=== PATIENT | male | born 1965 | race Caucasian/White ===

== ENCOUNTER 2017-11-27 19:37 | Emergency (ER) | payer OTHER ==
[2017-11-27] MEDS ORDERED: CLINDAMYCIN HCL 150 MG CAP ONE (19:52)
[2017-11-27] MEDS ORDERED: SMZ./TMP. 800/160 MG TABLET ONE (19:52)
[2017-11-27] MEDS ORDERED: TETANUS & DIPHTHERIA TOX,ADULT 0.5 ML VIAL ONE (19:53)
--- NOTE | 2017-11-27 20:09 | RAD REPORT ---
EXAM DESCRIPTION: CT - Head Brain Wo Cont - 11/27/2017 7:52 pm CLINICAL HISTORY: Blunt force trauma, puncture wound to the scalp COMPARISON: None. TECHNIQUE: Axial 5 mm thick images of the head were obtained without IV contrast. All CT scans are performed using dose optimization technique as appropriate and may include automated exposure control or mA/KV adjustment according to patient size. FINDINGS: No intracranial hemorrhage, mass, edema or shift of mid-line structures. No acute infarcti on changes seen. No abnormal extra-axial fluid collections. Ventricles are normal. Mastoid air cells and visualized portions of the paranasal sinuses are clear. No skull fracture or acute bone finding. No measurable hematoma or mass in the scalp soft tissues. No foreign body. IMPRESSION: Negative non-contrast CT head examination.
--- NOTE | 2017-11-27 20:27 | ER ---
Nurse's Notes [facility] Name: Daniel George Age: 52 yrs Sex: Male : 1965 Arrival Date: 11/27/2017 Time: 19:38 Bed 2 Private MD: Diagnosis: Laceration without foreign body of scalp Presentation: 11/27 19:40 Presenting complaint: EMS states: About an hour and a half ago, patient hit head on lp1 nail, laceration noted to back of head, not actively bleeding; Also has abscess to right hand, about 4-5 days; Denies any fever, LOC; Patient A\T\O x4. Transition of care: patient was not received from another setting of care. Complicating Factors: There are no complicating factors for this patient. Onset of symptoms was November 27, 2017 at 18:00. Initial Sepsis Screen: Does the patient meet any 2 criteria? No. Patient's initial sepsis screen is negative. Does the patient have a suspected source of infection? No. Patient's initial sepsis screen is negative. Care prior to arrival: None. 19:40 Method Of Arrival: EMS: [facility] lp1 19:40 Acuity: KYA 4 lp1 Triage Assessment: 19:45 General: Appears in no apparent distress. Behavior is calm, cooperative, appropriate lp1 for age. Pain: Complains of pain in scalp and right hand Pain currently is 8 out of 10 on a pain scale. EENT: No signs and/or symptoms were reported regarding the EENT system. Neuro: Level of Consciousness is awake, alert, obeys commands, Oriented to person, place, time, situation. Cardiovascular: Patient's skin is warm and dry. Respiratory: Respiratory effort is even, unlabored. GI: No signs and/or symptoms were reported involving the gastrointestinal system. : No signs and/or symptoms were reported regarding the genitourinary system. Derm: Skin is pink, warm \T\ dry. Abscess located on dorsum of right hand is half dollar sized. Musculoskeletal: Circulation, motion, and sensation intact. Injury Description: Laceration sustained to left parietal area was sustained 1-2 hours ago. Historical: - Allergies: 19:45 No Known Allergies; lp1 - Home Meds: 19:45 Metoprolol Tartrate Oral [Active]; Alprazolam Oral [Active]; Celexa Oral [Active]; lp1 Diazepam Oral [Active]; - PMHx: 19:45 Hypertension; Hernia; Hyperlipidemia; lp1 - PSHx: 19:45 None; lp1 - Immunization history:: Adult Immunizations up to date, Last tetanus immunization: > 10 years ago. - Family history:: not pertinent. - Social history:: Smoking status: Patient uses tobacco products, smokes one pack cigarettes per day. - Hospitalizations: : No recent hospitalization is reported. Screenin:45 Abuse screen: Denies threats or abuse. Denies injuries from another. Nutritional lp1 screening: No deficits noted. Tuberculosis screening: No symptoms or risk factors identified. Fall Risk None identified. Assessment: 19:47 Reassessment: See Triage assessment. lp1 20:00 Injury Description: Laceration is contaminated, 0.5 to 2.5 cm long. lp1 Vital Signs: 19:42 BP 123 / 89; Pulse 84; Resp 18; Temp 98.2(O); Pulse Ox 97% on R/A; Weight 81.65 kg; lp1 Height 5 ft. 11 in. (180.34 cm); Pain 8/10; 19:42 Body Mass Index 25.11 (81.65 kg, 180.34 cm) lp1 ED Course: 19:38 Patient arrived in ED. am2 19:38 Nael Wharton MD is Attending Physician. rn 19:40 Vikki Lentz, YA is Primary Nurse. lp1 19:42 Triage completed. lp1 19:42 Arm band placed on left wrist. lp1 19:45 Patient has correct armband on for positive identification. Bed in low position. Pulse lp1 ox on. NIBP on. 19:[address] via stretcher. lp1 19:49 CT completed. Patient moved back from CT. cw1 19:52 CT Head Brain wo Cont In Process Unspecified. EDMS 20:28 Assist provider with laceration repair on left parietal area that was 2.5 cm. or less lp1 using verito. Set up tray. Performed by Neal Wharton MD Patient tolerated well. 20:29 Patient did not have IV access during this emergency room visit. 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 Exp: mg2 03/02/2020. Lot #: [id number]. } Route: IM; Site: right deltoid; 20:40 Follow up: Response: No adverse reaction lp1 20:04 Drug: Clindamycin 300 mg Route: PO; mg2 20:44 Follow up: Response: No adverse reaction lp1 20:04 Drug: Bactrim (160 mg-800 mg (DS) 1 tablet Route: PO; mg2 20:44 Follow up: Response: No adverse reaction lp1 20:39 Drug: Tylenol 1000 mg Route: PO; lp1 20:40 Follow up: Response: Medication administered at discharge. lp1 20:39 Drug: Ibuprofen 800 mg Route: PO; lp1 20:39 Follow up: Response: Medication administered at discharge. lp1 Outcome: 20:27 Discharge ordered by . rn 20:42 Discharged to home ambulatory. lp1 20:42 Condition: good 20:42 Discharge instructions given to patient, Instructed on discharge instructions, follow up and referral plans. medication usage, Demonstrated understanding of instructions, follow-up care, medications, Prescriptions given X 2. 20:43 Patient left the ED. lp1 Signatures: Dispatcher [employer] EDMS Neal Wharton MD MD rn Woodley, Crystal cw1 Vikki Lentz RN RN lp1 Swapna Bain am2 Baldomero Thayer, YA RN mg2 Corrections: (The following items were deleted from the chart) 20:26 19:42 BP 123 / 89; Pulse 84bpm; Resp 18bpm; Pulse Ox 97% RA; 81.65 kg; Height 5 ft. 11 lp1 in.; BMI: 25.1; Pain 8/10; lp1
--- NOTE | 2017-11-27 20:27 | EDPHYS ---
Physician Documentation [facility] Name: Daniel George Age: 52 yrs Sex: Male : 1965 Arrival Date: 11/27/2017 Time: 19:38 Bed 2 Private MD: ED Physician Neal Wharton HPI: 11/27 19:39 This 52 yrs old Male presents to ER via Unassigned with complaints of rn Laceration To Head. 19:39 The patient has a laceration related to: a puncture wound occurred at home, and there rn are no complicating factors. The laceration(s) is(are) located on the scalp. Onset: The symptoms/episode began/occurred today. Associated signs and symptoms: Pertinent negatives: dizziness, loss of consciousness, suspected foreign body. The patient has not experienced similar symptoms in the past. REports stood up, hit head on exposed nail/screw + mild bleeding, no LOC, + mild headache, not on blood thinners, also reports has had hand infection over last 5 days or so, + recurrent staph infections in past. No fever. No mobility issues in right hand.. Historical: - Allergies: 19:45 No Known Allergies; lp1 - Home Meds: 19:45 Metoprolol Tartrate Oral [Active]; Alprazolam Oral [Active]; Celexa Oral [Active]; lp1 Diazepam Oral [Active]; - PMHx: 19:45 Hypertension; Hernia; Hyperlipidemia; lp1 - PSHx: 19:45 None; lp1 - Immunization history:: Adult Immunizations up to date, Last tetanus immunization: > 10 years ago. - Family history:: not pertinent. - Social history:: Smoking status: Patient uses tobacco products, smokes one pack cigarettes per day. - Hospitalizations: : No recent hospitalization is reported. ROS: 19:39 Constitutional: Negative for fever, chills, and weight loss, Eyes: Negative for injury, rn pain, redness, and discharge, Neck: Negative for injury, pain, and swelling, Cardiovascular: Negative for chest pain, palpitations, and edema, Respiratory: Negative for shortness of breath, cough, wheezing, and pleuritic chest pain, Abdomen/GI: Negative for abdominal pain, nausea, vomiting, diarrhea, and constipation, Back: Negative for injury and pain, MS/Extremity: Negative for injury and deformity, Skin: + infection of right hand, + puncture wound to scalp Neuro: Negative for weakness, numbness, tingling, and seizure. Exam: 19:39 Constitutional: This is a well developed, well nourished patient who is awake, alert, rn and in no acute distress. Head/Face: Normocephalic, 2cm linear superficial laceration to posertior/crown scalp, no active bleeding, no foreign body noted Eyes: Pupils equal round and reactive to light, extra-ocular motions intact. Lids and lashes normal. Conjunctiva and sclera are non-icteric and not injected. Cornea within normal limits. Periorbital areas with no swelling, redness, or edema. Neck: Trachea midline, no thyromegaly or masses palpated, and no cervical lymphadenopathy. Supple, full range of motion without nuchal rigidity, or vertebral point tenderness. No Meningismus. Cardiovascular: Regular rate and rhythm with a normal S1 and S2. No gallops, murmurs, or rubs. Normal PMI, no JVD. No pulse deficits. Respiratory: Lungs have equal breath sounds bilaterally, clear to auscultation and percussion. No rales, rhonchi or wheezes noted. No increased work of breathing, no retractions or nasal flaring. Abdomen/GI: Soft, non-tender, with normal bowel sounds. No distension or tympany. No guarding or rebound. No evidence of tenderness throughout. Skin: Warm, dry, + crusting healing wound to dorsum of right hand, no fluctuance, no involvement of fingers/digits, no evidence FTS, no purulence, + dry cracked surrounding skin with mild erythema and peeling. MS/ Extremity: Pulses equal, no cyanosis. Neurovascular intact. Full, normal range of motion. Equal circumference. Neuro: Awake and alert, GCS 15, oriented to person, place, time, and situation. Cranial nerves II-XII grossly intact. Motor strength 5/5 in all extremities. Sensory grossly intact. Cerebellar exam normal. Normal gait. Vital Signs: 19:42 BP 123 / 89; Pulse 84; Resp 18; Temp 98.2(O); Pulse Ox 97% on R/A; Weight 81.65 kg; lp1 Height 5 ft. 11 in. (180.34 cm); Pain 8/10; 19:42 Body Mass Index 25.11 (81.65 kg, 180.34 cm) lp1 Laceration: 20:25 Wound Repair of 2cm ( 0.8in ) subcutaneous laceration to scalp. Distal rn neuro/vascular/tendon intact. Wound prep: Extensive cleansing by pest control technician, Wound irrigation with saline by pest control technician, Copious irrigation. Skin closed with 2 1-0 [place] using staple gun. Dressed with Neosporin. Patient tolerated well. MDM: 19:38 Patient medically screened. rn 20:25 Differential diagnosis: superficial laceration. Data reviewed: vital signs, nurses rn notes, radiologic studies, CT scan, and as a result, I will discharge patient. Counseling: I had a detailed discussion with the patient and/or guardian regarding: the historical points, exam findings, and any diagnostic results supporting the discharge/admit diagnosis, radiology results, the need for outpatient follow up, to return to the emergency department if symptoms worsen or persist or if there are any questions or concerns that arise at home. 20:26 Special discussion: I discussed with the patient/guardian in detail that at this point rn there is no indication for admission to the hospital. It is understood, however, that if the symptoms persist or worsen the patient needs to return immediately for re-evaluation. 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 Exp: mg2 03/02/2020. Lot #: [id number]. } Route: IM; Site: right deltoid; 20:40 Follow up: Response: No adverse reaction lp1 20:04 Drug: Clindamycin 300 mg Route: PO; mg2 20:44 Follow up: Response: No adverse reaction lp1 20:04 Drug: Bactrim (160 mg-800 mg (DS) 1 tablet Route: PO; mg2 20:44 Follow up: Response: No adverse reaction lp1 20:39 Drug: Tylenol 1000 mg Route: PO; lp1 20:40 Follow up: Response: Medication administered at discharge. lp1 20:39 Drug: Ibuprofen 800 mg Route: PO; lp1 20:39 Follow up: Response: Medication administered at discharge. lp1 Disposition: 11/27/17 20:27 Discharged to Home. Impression: Laceration without foreign body of scalp. - Condition is Stable. - Discharge Instructions: Cellulitis, Laceration Care, Adult, Stitches, Shen, or Adhesive Wound Closure. - Prescriptions for Clindamycin HCl 300 mg Oral Capsule - take 1 capsule by ORAL route every 6 hours for 10 days; 40 capsule. Bactrim DS 800- 160 mg Oral Tablet - take 1 tablet by ORAL route every 12 hours for 10 days; 20 tablet. - Medication Reconciliation Form, Thank You Letter, Antibiotic Education, Prescription Opioid Use form. - Follow up: Private Physician; When: 7 - 10 days; Reason: Staple/Suture removal. - Problem is new. - Symptoms have improved. Signatures: Dispatcher [employer] EDNeal Davison MD MD rn Vikki Lentz RN RN lp1 Baldomero Thayer RN RN mg2
[2017-11-27] MEDS ORDERED: ACETAMINOPHEN 500 MG TAB ONE (20:30)
[2017-11-27] MEDS ORDERED: IBUPROFEN 400 MG TAB ONE (20:30)
== END 2017-11-27 20:43 | disposition home or self-care (01) ==
LOC: ER 19:37
PROC: 0JQ00ZZ Repair Scalp Subcutaneous Tissue and Fascia, Open Approach (ICD-10-PCS; principal; 2017-11-27)
DX: S01.01XA Laceration without foreign body of scalp, initial encounter (principal); W22.8XXA Striking against or struck by other objects, initial encounter; Y93.89 Activity, other specified; Y92.009 Unspecified place in unspecified non-institutional (private) residence as the place of occurrence of the external cause; Z23 Encounter for immunization; F17.210 Nicotine dependence, cigarettes, uncomplicated; I10 Essential (primary) hypertension; E78.5 Hyperlipidemia, unspecified
CPT/HCPCS: 70450; 90714; 99284

== ENCOUNTER 2018-03-16 07:30 | Day surgery (SDC) | payer OTHER ==
--- OUTSIDE RECORDS SUMMARY | 2018-03-16 07:34 | XMS REPORT ---
:1965 Author Organization [employer] Care Team Providers Name Role Phone Dennis Mak Provider Role Unavailable Allergies, Adverse Reactions, Alerts Substance Reaction Event Type N.K.D.A. Info Not Available Non Drug Allergy Problems Problem Type Condition Code Onset Dates Condition Status Assessment Left inguinal hernia K40.90 Active Medications Medication Code Code Instructions Start End Date Status Dosage System Date Diazepam [facility] 26372749992 10 MG Orally Active 1 tablet Twice a day as needed Metoprolol [facility] 47574920250 100 MG Orally Active 1 tablet Tartrate Twice a day with food Celexa [facility] 31612391088 40 MG Orally Active 0.5 Once a day tablet Alprazolam [facility] 58519471300 2 MG Orally Active 1 tablet Twice a day Results No Known Results Summary Purpose [employer] Submission
[2018-03-16] MEDS ORDERED: Ringers Lactate 1,000 ML IV ONE ×2 (07:55→09:30)
[2018-03-16] MEDS ORDERED: CEFAZOLIN/SWI 1gm 1 GM/10 ML SYR ONE (07:55)
[2018-03-16] MEDS ORDERED: BUPIVACA 0.25%/EPI 0.0005% MDV 50 ML VIAL ONE (08:00)
[2018-03-16] MEDS ORDERED: PROPOFOL 200 MG/20 ML VIAL IV ONE (08:27)
[2018-03-16] MEDS ORDERED: FENTANYL CITR 100 MCG/2 ML ONE ×2 (08:28→09:29)
[2018-03-16] MEDS ORDERED: MIDAZOLAM HCL 2 MG/2 ML INJ ONE (08:28)
[2018-03-16] MEDS ORDERED: LIDOCAINE 1% MPF 5 ML VIAL ONE (08:28)
[2018-03-16] MEDS ORDERED: ONDANSETRON HCL 40 MG/20 ML VIAL ONE (08:29)
[2018-03-16] MEDS ORDERED: ROCURONIUM 50 MG/5 ML VIAL IV ONE (08:29)
[2018-03-16] MEDS ORDERED: Phenylephrine HCl 10 MG/ML 1 ML VIAL ONE (09:11)
[2018-03-16] MEDS ORDERED: EPHEDRINE SULF 50 MG/10 ML SYR ONE (09:48)
--- NOTE | 2018-03-16 10:35 | P.OP ---
Preoperative diagnosis: LEFT inguinal hernia Postoperative diagnosis: LEFT pantaloon inguinal hernia Primary procedure: Open LEFT inguinal hernia repair with plug and patch Anesthesia: GETA + Local Estimated blood loss: <10cc Specimen: LEFT inguinal hernia sack Findings: LEFT pantaloon - direct and indirect hernia Complications: None Implants: Bard plug and patch system Transferred to: Recovery Room Condition: Good
[2018-03-16] MEDS: MEPERIDINE HCL 50 MG/ML AMP ONE ×4 (10:44→11:01)
[2018-03-16] MEDS ORDERED: MORPHINE 4 MG/ML SYR ONE (11:14)
[2018-03-16] MEDS ORDERED: HYDROCODONE/APAP 5/325 MG TAB ONE (12:44)
--- NOTE | 2018-03-16 22:46 | OP ---
Date of Procedure: 03/16/2018 Surgeon: Dennis Mak MD, Preoperative Diagnosis: Left inguinal hernia. Postoperative Diagnosis: Left pantaloon inguinal hernia. Procedure Performed: Open left inguinal hernia repair with plug and patch system. Anesthesia: General endotracheal plus local with 0.25% Marcaine with epinephrine. Estimated Blood Loss: Less than 10 cc. Specimen: Left inguinal hernia sac. Findings: Left pantaloon/direct indirect inguinal hernias. Complications: None. Implants: Bard plug and patch large hernia repair system. Disposition: Transferred to the recovery room in good condition. Procedure In Detail: After informed consent obtained, patient brought to the operating room, prepped in the usual sterile fashion. After adequate anesthesia achieved, a left inguinal incision was made through subcutaneous tissues after appropriately anesthetizing 0.25% Marcaine down through Camper's fat and Deb's fascia to expose the frayed external oblique aponeurosis. This layer was almost com pletely obliterated by this large bulging hernia which was approximately the size of an orange bulgin g from this patient's inguinal region. Dissection continued down to expose the hernia sac. This was completely encircled and opened. The hernia sac was dissected free from the spermatic cord structur es, which were all identified carefully, and these were encircled with a Beka drain. At this poin t, the hernia sac was dissected free from the spermatic cord structures. The colon was found to be e manating through this hernia defect as well and required dissection and separation from the hernia sa c using both sharp and blunt dissection. In addition, minimal electrocautery was used in this area. After the colon was moved to the normal anatomic position, the hernia sac was ligated and sent off f or pathologic examination. At this point, the large hernia patch system was used and placed into the preperitoneal space and unfurled appropriately and secured circumferentially with 3 single 0 PDS sut ures with good approximation. A cord lipoma was still evident on the cord and this was taken off and sent off for pathologic examination at the same time. At this point, the area was copiously irrigat ed and the testicle was pulled back to the normal anatomic position aligning the spermatic cord struc tures and allowing for optimal position of the patch system. The patch was large patch of Bard manuf acturing, which was then sized appropriately and trimmed and placed under the cord structures and med ially along the tract. It was then secured to the medial and lateral shelving edges and secured to r econstitute the inguinal ring on the proximal aspect with an interrupted 0 PDS sutures. The area was then copiously irrigated multiple times until completely clear. The thin friable external oblique a poneurosis was then reapproximated over the top of this, but this was again thin friable and essentia lly had minimal strength to it. This next layer was copiously irrigated. The Camper's fat and Scarp a's fascia was closed with simple interrupted 3-0 Vicryl sutures with good approximation. The skin w as then copiously irrigated and dried, and then the skin was closed with a 4-0 Monocryl in a running fashion, Dermabond placed over top. The patient tolerated the procedure well without complications, transferred to the PACU in good condition. All counts were correct at the end of the case. NICHOLE/HALEY Voice ID: [id number] Report ID: [id number]
== END 2018-03-16 15:00 | disposition home or self-care (01) ==
LOC: OR 07:30
PROVIDERS: ATTEND Surgery
PROC: 0YU60JZ Supplement Left Inguinal Region with Synthetic Substitute, Open Approach (ICD-10-PCS; principal; 2018-03-16 08:30)
DX: K40.90 Unilateral inguinal hernia, without obstruction or gangrene, not specified as recurrent (principal); I10 Essential (primary) hypertension; E78.5 Hyperlipidemia, unspecified; F41.8 Other specified anxiety disorders; F17.210 Nicotine dependence, cigarettes, uncomplicated; Z80.1 Family history of malignant neoplasm of trachea, bronchus and lung
CPT/HCPCS: 88302; J0690; J2175; J2250; J2370; J2405; J3010

== ENCOUNTER 2021-12-18 02:33 | Emergency (ER) | payer OTHER ==
[2021-12-18] MEDS ORDERED: ETOMIDATE 20 MG/10 ML VIAL IV ONE (02:34)
[2021-12-18] MEDS ORDERED: SUCCINYLCHOLINE 20 MG/ML (10 ML) IV ONE (02:34)
--- OUTSIDE RECORDS SUMMARY | 2021-12-18 02:36 | XMS REPORT | Continuity of Care Document ---
:1965 Author Organization [facility] t Address [address] [place] [address] [address] [place] [address] Care Team Providers Name Role Phone Pcp, Does Not Have A Primary Care Physician Payers Payer Name Policy Type Policy Number Effective Date Expiration Date S josé miguel [facility] [id number] 2017 00:00:00 PLUS Problems Condition Condition Condition Status Onset Resolution Last Treating Co mments Source Name Details Category Date Date Treatment Clinician Date Follow-up Follow-up Diagnosis Active C ommon exam exam [facility] No known No known Disease Unive rs active active ity of problems problems [facility] Allergies, Adverse Reactions, Alerts Allergy Allergy Status Severity Reaction(s) Onset Inactive Treating Comm ents Source Name Type Date Date Clinician NO KNOWN Drug Active Univers ALLERGIE Class ity of S [facility] Social History Social Habit Start Date Stop Date Quantity Comments Source Exposure to Unable to assess Univers ity of SARS-CoV-2 [facility] (event) [place] Sex Ass[birth year] Universit y of 00:00:00 00:00:00 [facility] Smoking Status Start Date Stop Date Source Unknown if ever smoked [facility] Medications Ordered Filled Start Stop Current Ordering Indication Dosage Frequency Signature Comments Components Source Medication Medication Date Date Medication? Clinician (SIG) Name Name No known 2015-08 No Univers medications 08-01 ity of 18:50: [address] Diazepam Diazepam Yes Dennis 1 tablet Com mon Kovacev as needed [facility] Metoprolol Metoprolol Yes Dennis 1 tablet Common Tartrate Tartrate Kovacev with food [facility] Celexa Celexa Yes Dennis 0.5 tablet Commo n [facility] Alprazolam Alprazolam Yes Dennis 1 tablet Common [facility] Procedures This patient has no known procedures. Encounters Start End Encounter Admission Attending Care Care Encounter Source Date/Time Date/Time Type Type Clinicians Facility Department ID 2021-11-05 2021-11-05 Emergency X [facility] ERT [id number] Univers 22:33:00 22:34:00 ity of [facility] 2021-11-05 2021-11-05 Emergency [facility] [id number] Univers 22:33:00 22:34:00 [place] [id number] i ty [facility] [id number] [facility] [id number] [address] 2018-04-04 2018-04-04 [facility] [id number] Common 13:30:00 13:30:00 t Specialty/U Sp mode Specialty [facility] 2018-03-22 2018-03-22 [facility] [id number] Common 14:11:00 14:11:00 t Specialty/U Sp mode Specialty [facility] 2018-02-28 2018-02-28 [facility] [id number] Common 09:00:00 09:00:00 t Specialty/U Sp mode Specialty [facility] Results This patient has no known results.
[2021-12-18] MEDS ORDERED: RSI MEDICATION KIT IV ONE ×3 (03:37→06:28)
[2021-12-18 03:40] LABS: Absolute Lymphocytes (CBC) 1.9 K/uL (0.7-4.9); RBC Red Blood Cell Count 4.96 M/uL (4.33-5.43)
[2021-12-18 03:46] LABS: Urine Blood Trace-intact (Negative); Urine Glucose Negative (Negative); Urine Protein Negative (Negative); Urine pH 5.5 (5.0-7.0)
[2021-12-18] MEDS ORDERED: propofoL 1,000 MG/100 ML VIAL IV ONE (03:59)
[2021-12-18] MEDS ORDERED: propofoL 200 MG/20 ML VIAL IV ONE (03:59)
[2021-12-18 04:09] LABS: Barbiturates NEGATIVE (NEGATIVE); Benzodiazepines POSITIVE (NEGATIVE); Cocaine POSITIVE (NEGATIVE); METHAMPHETAM NEGATIVE (NEGATIVE); Methadone NEGATIVE (NEGATIVE); Opiates NEGATIVE (NEGATIVE); Phencyclidine NEGATIVE (NEGATIVE); THC Cannibis POSITIVE (NEGATIVE)
[2021-12-18] MEDS ORDERED: NA CHLORIDE 0.9% 1,000 ML ONE (04:27)
[2021-12-18 04:52] LABS: Arterial Blood Carboxyhemoglob 2.9 % (0-1.5); Blood Gas Oxyhemoglobin 95.4 % (94-97); Blood O2 Saturation 99.5 % (92-98.5)
[2021-12-18] MEDS ORDERED: MORPHINE 4 MG/ML SYR ONE (05:02)
[2021-12-18] MEDS ORDERED: LABETALOL HCL 100 MG/20 ML ONE (05:04)
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
[2021-12-18] MEDS ORDERED: METHYLPREDNISOLONE 125 MG INJ ONE (05:32)
[2021-12-18] MEDS ORDERED: MIDAZOLAM HCL 2 MG/2 ML INJ ONE (05:32)
[2021-12-18] MEDS ORDERED: D5.45NS W/KCL 20MEQ 1,000 ML IV ONE (06:14)
[2021-12-18 07:33] LABS: Protime INR 0.99
[2021-12-18 07:48] LABS: ALT/SGPT 20 U/L (12-78); AST/SGOT 16 U/L (15-37); Alkaline Phosphatase 83 U/L (45-117); BUN Blood Urea Nitrogen 12 mg/dL (7-18); Bicarbonate 26 mmol/L (21-32); Bilirubin Direct 0.2 mg/dL (0-0.2); Bilirubin Total 0.5 mg/dL (0.2-1.0); Glomerular Filtration Rate 100 ml/min (=/>90); Glucose Level 121 mg/dL (74-106); Potassium 4.6 mmol/L (3.5-5.1); Protein, Total 6.4 g/dL (6.4-8.2); Sodium Level 139 mmol/L (136-145)
[2021-12-18 08:02] VITALS: TEMP 97.5
[2021-12-18 08:17] VITALS: BP 117/87; O2SAT 98
--- NOTE | 2021-12-18 15:23 | RAD REPORT ---
EXAM DESCRIPTION: CT Head Without Intravenous Contrast CLINICAL HISTORY: The patient is 56 years old and is Male; altered mental status, HTN TECHNIQUE: Axial computed tomography images of the head/brain without intravenous contrast. Sagitt al and coronal reformatted images were created and reviewed. This CT exam was performed using one o r more of the following dose reduction techniques: automated exposure control, adjustment of the mA and/or kV according to patient size, and/or use of iterative reconstruction technique. COMPARISON: No relevant prior studies available. FINDINGS: BRAIN: Unremarkable. The altamirano-white matter differentiation is preserved . No hemorrhag e. No significant white matter disease. No edema. No extra-axial fluid collections. VENTRICLES: Unremarkable. No ventriculomegaly. BONES/JOINTS: Chronic bilateral nasal bone fractures are present. SOFT TISSUES: Unremarkable. SINUSES: Unremarkable as visualized. No acute sinusitis. MASTOID AIR CELLS: Unremarkable as visualized. No mastoid effusion. ORBITS: Unremarkable as visualized. IMPRESSION: No acute intracranial findings. Electronically signed by: Sandra Price MD 12/18/2021 5:15 AM CDT Due to temporary technical issues with the PACS/Fluency reporting system, reports are being signed by the in house radiologists without review as a courtesy to insure prompt reporting. The interpreting radiologist is fully responsible for the content of the report.
--- NOTE | 2021-12-18 15:35 | RAD REPORT ---
EXAM DESCRIPTION: XR Chest, 1 View CLINICAL HISTORY: The patient is 56 years old and is Male; post intubation TECHNIQUE: Single view of the chest. COMPARISON: No relevant prior studies available. FINDINGS: Lungs: Unremarkable. No consolidation. Pleural space: Unremarkable. No pneumothorax. Heart: Unremarkable. No cardiomegaly. Mediastinum: Unremarkable. Bones/joints: No acute fracture identified. Tubes, lines and devices: ET tube is 3.5 cm above the cortes. NG tube is below the diaphragm. Upper abdomen: No free air in the visualized upper abdomen. IMPRESSION: ET tube is 3.5 cm above the cortes. NG tube is below the diaphragm. Electronically signed by: Gracia Pinzon MD 12/18/2021 5:14 AM CDT Due to temporary technical issues with the PACS/Fluency reporting system, reports are being signed by the in house radiologists without review as a courtesy to insure prompt reporting. The interpreting radiologist is fully responsible for the content of the report.
--- NOTE | 2021-12-19 11:08 | EKG ---
Test Date: 2021-12-18 Test Time: 03:24:40 Nozzleman: EMERSON MEASUREMENT RESULTS: Intervals: Rate: 108 MT: 156 QRSD: 76 QT: 326 QTc: 436 Hammond: P: 66 MT: 156 QRS: 61 T: 58 INTERPRETIVE STATEMENTS: Sinus tachycardia Otherwise normal ECG No previous ECG available for comparison Electronically Signed On 12-19-21 11:06:52 CDT by Mahamed Montalvo
== END 2021-12-18 07:52 | disposition short-term general hospital (02) ==
LOC: ER 02:33
PROC: 0BH17EZ Insertion of Endotracheal Airway into Trachea, Via Natural or Artificial Opening (ICD-10-PCS; principal; 2021-12-18)
PROC: 5A1935Z Respiratory Ventilation, Less than 24 Consecutive Hours (ICD-10-PCS; 2021-12-18)
DX: J96.01 Acute respiratory failure with hypoxia (principal); U07.1 COVID-19; T42.4X5A Adverse effect of benzodiazepines, initial encounter; I10 Essential (primary) hypertension; E78.5 Hyperlipidemia, unspecified
CPT/HCPCS: 93005; 85025; 80048; 36415; 80320; 80329 ×2; 85610; 82947; 80076; 85730; 81003; 80307; 70450; 71045; 82805; 99291; 31500; 94002; U0003; J2704 ×2; J0330; J2250; J7030; J2930

== ENCOUNTER 2022-08-11 21:06 | Emergency (ER) | payer OTHER ==
--- OUTSIDE RECORDS SUMMARY | 2022-08-11 21:10 | XMS REPORT | Continuity of Care Document ---
:1965 Author Organization [facility] t Address [address] [place] [address] Care Team Providers Name Role Phone Pcp, Patient Does Not Have A Primary Care Physician [phone] KATELYN FARFAN Attending Clinician Unavailable IRA BOWENS Attending Clinician Unavailable Ira Bowens MD Attending Clinician Katelyn Farfan MD Attending Clinician [phone] IRA BOWENS Admitting Clinician Unavailable Payers Payer Name Policy Type Policy Number Effective Date Expiration Date S josé miguel [facility] [id number] 2021 00:00:00 [facility] [id number] 2017 00:00:00 PLUS Problems Condition Condition Condition Status Onset Resolution Last Treating Co mments Source Name Details Category Date Date Treatment Clinician Date Altered Altered Disease Active [facility] awareness, 5-20 Tram kes transient transient 00:00: [address] Acute Acute Disease Active [facility] encephalop encephalop 5-20 Tram kes athy athy [facility]:00: [facility] No known No known Disease Unive rs active active ity of problems problems [facility] Follow-up Follow-up Diagnosis Active C ommon exam exam [facility] Allergies, Adverse Reactions, Alerts Allergy Allergy Status Severity Reaction(s) Onset Inactive Treating Comm ents Source Name Type Date Date Clinician NO KNOWN Drug Active Univers ALLERGIE Class ity of S [facility] NO KNOWN Allergy Active [facility] Social History Social Habit Start Date Stop Date Quantity Comments Source Exposure to Unable to assess [facility] ity of SARS-CoV-2 [facility] (event) [facility] Sex Assigned At [birth year] [facility] 00:00:00 [facility]:00 [facility] Smoking Status Start Date Stop Date Source Unknown if ever smoked [facility]it y of [facility] Medications Ordered Filled Start Stop Current Ordering Indication Dosage Frequency Signature Comments Components Source Medication Medication Date Date Medication? Clinician (SIG) Name Name No known 2015-08 No Univers medications 08-01 ity of 18:50: [place] 03 [facility] Diazepam Diazepam Yes Dennis 1 tablet Com mon Kovacev as needed [facility] Metoprolol Metoprolol Yes Dennis 1 tablet Common Tartrate Tartrate Kovacev with food [facility] Celexa Celexa Yes Dennis 0.5 tablet Commo n Kovacev [facility] Alprazolam Alprazolam Yes Dennis 1 tablet Common Kovacev [facility] Vital Signs Vital Name Observation Time Observation Value Comments Source HEIGHT 2021-12-18 09:14:00 177.8 cm WEIGHT 2021-12-18 09:14:00 85.8 kg HEIGHT 2021-12-18 09:14:00 177.8 cm WEIGHT 2021-12-18 09:14:00 85.8 kg HEIGHT 2021-12-18 09:14:00 177.8 cm WEIGHT 2021-12-18 09:14:00 85.8 kg Body temperature 2021-12-20 07:00:00 36.67 [facility] Oxygen saturation in 2021-12-19 20:45:00 98 /min [facility] Arterial blood by Medical Ce ntbhavani Pulse oximetry Systolic blood 2021-12-19 19:30:00 154 mm[Hg] [facility] Diastolic blood 2021-12-19 19:30:00 88 mm[Hg] [facility] Heart rate 2021-12-19 19:30:00 79 /min [facility] Respiratory rate 2021-12-19 19:30:00 18 /min [facility] Body height 2021-12-18 09:14:00 177.8 cm [facility] Body weight 2021-12-18 09:14:00 85.8 kg [facility] BMI 2021-12-18 09:14:00 27.14 kg/m2 [facility] Procedures Procedure Date / Time Performed Performing Clinician Sour e POCT-GLUCOSE METER 2021-12-19 16:53:00 Katelyn Farfan [facility] MAGNESIUM 2021-12-19 04:20:00 Oliver-Te, [facility] PHOSPHORUS 2021-12-19 04:20:00 Oliver-, [facility] CBC W/PLT COUNT & AUTO 2021-12-19 04:20:00 Oliver-, [facility] DIFFERENTIAL [facility] CBC W/PLT COUNT & AUTO 2021-12-19 04:20:00 Oliver-, [facility] BASIC METABOLIC PANEL 2021-12-19 04:20:00 [facility] BLOOD GAS, ARTERIAL 2021-12-19 04:16:00 Oliver-, [facility] POCT-GLUCOSE METER 2021-12-19 01:00:00 Katelyn Farfan [facility] XR CHEST 1 VIEW PORTABLE 2021-12-18 18:52:00 Oliver-Flor Martin [facility] / BEDSIDE [facility] POCT-GLUCOSE METER 2021-12-18 17:46:00 Katelyn Farfan [facility] POCT-GLUCOSE METER 2021-12-18 14:26:00 Katelyn Farfan [facility] CTA CHEST FOR PULMONARY 2021-12-18 14:25:00 OliverDiegoFlor CH I [facility] EMBOLUS [facility] POCT-GLUCOSE METER 2021-12-18 12:16:00 Katelyn Farfan [facility] XR CHEST 1 VIEW PORTABLE 2021-12-18 11:40:00 Oliver-Te, [facility] SPUTUM CULTURE + GRAM 2021-12-18 10:14:00 Oliver-Te, [facility] STAIN [facility] XR CHEST 1 VIEW PORTABLE 2021-12-18 10:09:00 Oliver-Te, [facility] BLOOD GAS, ARTERIAL 2021-12-18 10:08:00 Oliver-Te, [facility] BLOOD CULTURE 2021-12-18 10:01:00 Oliver-, [facility] C-REACTIVE PROTEIN 2021-12-18 10:00:00 Oliver-Te, [facility] PROCALCITONIN 2021-12-18 10:00:00 Oliver-, [facility] PROTHROMBIN TIME/INR 2021-12-18 09:59:00 Oliver-Te, [facility] APTT 2021-12-18 09:59:00 Oliver-Te, [facility] CBC W/PLT COUNT & AUTO 2021-12-18 09:59:00 Oliver-Te, [facility] COMPREHENSIVE METABOLIC 2021-12-18 09:59:00 Oliver-Te, [facility] I [facility] PANEL [facility] MAGNESIUM 2021-12-18 09:59:00 Oliver-Te, [facility] PHOSPHORUS 2021-12-18 09:59:00 Oliver-Te, [facility] LIPID PANEL 2021-12-18 09:59:00 Oliver-Te, [facility] D-DIMER 2021-12-18 09:59:00 Oliver-Te, [facility] CBC W/PLT COUNT & AUTO 2021-12-18 09:59:00 Oliver-Flor Martin [facility] DIFFERENTIAL [facility] EKG-SCANNED 2021-12-18 00:00:00 Provider, Shawn Oglesby Caitlin es Scanning [place] Plan of Care Planned Activity Planned Date Details Comments Source Future Scheduled 2026-12-18 Lipid panel (procedure) [facility] Test 00:00:00 [code = 08420642] Medical Ce nter Future Scheduled 2022-08-[address] [facility] Test 00:00:00 (12+) [code = Medical Center DEPRESSION SCREENING (12+)] Future Scheduled 2022-04-01 INFLUENZA VACCINE (#1) [facility] 00:00:00 [code = INFLUENZA Medical Ce nter VACCINE (#1)] Future Scheduled 2014 SHINGLES VACCINES ([address] [facility] Test 00:00:00 2) [code = SHINGLES [facility] VACCINES (1 of 2)] Future Scheduled 1983 DTAP/TDAP/TD VACCINES [facility] 00:00:00 (1 - Tdap) [code = Medical C enter DTAP/TDAP/TD VACCINES (1 - Tdap)] Future Scheduled 1982 HEPATITIS C SCREENING [facility] 00:00:00 [code = HEPATITIS C Medical Center SCREENING] Future Scheduled [address] [facility] Test 00:00:00 Counseling and Medical Cente r Screening (12+) [code = Tobacco Cessation Counseling and Screening (12+)] Future Scheduled 1965[birth year]01-13 COVID-19 VACCINE (#1) [facility] 00:00:00 [code = COVID-[address] VACCINE (#1)] Future Scheduled 1964 CT Colonography (combo) [facility] Test 00:00:00 [code = CT Colonography [facility] (combo)] Future Scheduled 1964 Screening for malignant [facility] Test 00:00:00 neoplasm of colon Medical Ce nter (procedure) [code = 876174096] Future Scheduled 1964 Screening for malignant [facility] Test 00:00:00 neoplasm of colon Medical Ce nter (procedure) [code = 715097777] Future Scheduled 1964 Screening for malignant [facility] Test 00:00:00 neoplasm of colon Medical Ce nter (procedure) [code = 135573684] Future Scheduled 1964 Screening for malignant [facility] Test 00:00:00 neoplasm of colon Medical Ce nter (procedure) [code = 661111647] Future Scheduled 1965 Sigmoidoscopy [code = [facility] 00:00:00 Sigmoidoscopy] Medical Cente r Encounters Start End Encounter Admission Attending Care Care Encounter Source Date/Time Date/Time Type Type Clinicians Facility Department ID 2021-12-18 2021-12-20 Inpatient ER [facility] ICU [id number] [facility] 08:55:00 12:00:00 KATELYN 2021-12-18 2021-12-20 [facility] Ira Bowens [facility] [id number] 08:55:00 12:00:00 Encounter Katelyn Farfan [facility] 2021-11-05 2021-11-05 Emergency X [facility] ERT [id number] Univers 22:33:00 22:34:00 ity of [facility] 2021-11-05 2021-11-05 Emergency [facility] [id number] Univers 22:33:00 22:34:00 [facility] [id number] i ty [facility] [id number] [facility] [id number] [place] [address] Branch 2018-04-04 2018-04-04 [facility] [id number] Common 13:30:00 13:30:00 t Specialty/U Sp mode Specialty rology - [facility]Urology Clinic [facility] 2018-03-22 2018-03-22 [facility] [id number] Common 14:11:00 14:11:00 t Specialty/U Sp mode Specialty rology - [facility] 2018-02-28 2018-02-28 [facility] [id number] Common 09:00:00 09:00:00 t Specialty/U Sp mode Specialty rology - [facility]rology Clinic [facility] Results Test Description Test Time Test Comments Results Result Comments Source BLOOD CULTURE 2021-12-23 13:00:25 Test Item Value Reference Range Interpretation Comme nts CULTURE (BEAKER) (test code = 1095) No growth in 5 days BLOOD [id number] 13:00:25 Test Item Value Reference Range Interpretation Comments CULTURE (BEAKER) (test No growth in 5 days code = 1095) SPUTUM CULTURE + GRAM [id number] 11:57:54 Test Item Value Reference Range Interpretation Comments CULTURE (BEAKER) STREPTOCOCCUS A 3+ Strepto coccus (test code = 1095) PNEUMONIAE pneumonia e Clindamycin (test R code = 10) Erythromycin (test R code = 4) Levofloxacin (test S code = 22) Linezolid (test S code = 40) Moxifloxacin (test S code = 36) Tetracycline (test R code = 2) Tigecycline (test S code = 133) Vancomycin (test S code = 13) GRAM STAIN RESULT 1+ WBCs (BEAKER) (test code = 1123) GRAM STAIN RESULT 2+ gram negative (BEAKER) (test cocci in pairs code = 328813) POC-Glucose [id number] 17:05:08 Test Item Value Reference Range Interpretation Comments POC-Glucose Meter (test 126 mg/dL 70-110 H : TE STED AT [facility] code = 1538) [address] [facility] [address]: Bell Person/Techni diana ID = [id number] for Marley Em Lab Interpretation (test Abnormal code = 33770-9) [facility] [id number] 17:05:08 Test Item Value Reference Range Interpretation Comments POC-GLUCOSE METER 126 mg/dL 70-110 H : TESTED A T [facility] 1317 (BEAKER) (test code [place] [facility] NT [facility], = 1538) [facility] 77 478: Bell Person/Techni diana ID = [id number] for Ali, Em [id number] 05:07:36 Test Item Value Reference Range Interpretation Comments MAGNESIUM (BEAKER) (test code = 2.1 mg/dL 1.5-3.0 627) Bell Person ID - LITOOperator ID - LITOOperator ID - LITOOperator ID - LITOBASIC METABOLIC [id number] 05:06:39 Test Item Value Reference Range Interpretation Comments SODIUM (BEAKER) (test 141 meq/L 135-148 code = 381) POTASSIUM (BEAKER) 4.6 meq/L 3.6-5.5 (test code = 379) CHLORIDE (BEAKER) 108 meq/L 98-106 H (test code = 382) CO2 (BEAKER) (test 25 meq/L 20-29 code = 355) BLOOD UREA NITROGEN 15 mg/dL 10-26 (BEAKER) (test code = 354) CREATININE (BEAKER) 0.81 mg/dL 0.50-1.20 (test code = 358) GLUCOSE RANDOM 135 mg/dL 70-110 H (BEAKER) (test code = 652) CALCIUM (BEAKER) 8.4 mg/dL 8.5-10.5 L (test code = 697) EGFR (BEAKER) (test INSUFFIC IENT CLINICAL code = 1092) DATA TO CALCULA TE ESTIMATED GFR. Bell Person ID - LITOOperator ID - LITOOperator ID - LITOOperator ID - LITOOperator ID - LITOOperator ID - LITOOperator ID - LITOOperator ID - LITOOperator ID - LITOOperator ID - [id number] 05:04:55 Test Item Value Reference Range Interpretation Comments PHOSPHORUS (BEAKER) (test code = 2.8 mg/dL 2.5-4.5 604) Bell Person ID - LITOCBC W/PLT COUNT & AUTO [id number] 04:43:27 Test Item Value Reference Range Interpretation Comments WHITE BLOOD CELL COUNT (BEAKER) 11.6 K/ L 4.0-10.0 H (test code = 775) RED BLOOD CELL COUNT (BEAKER) 4.58 M/ L 4.20-5.80 (test code = 761) HEMOGLOBIN (BEAKER) (test code = 15.4 GM/DL 13.0-16.8 410) HEMATOCRIT (BEAKER) (test code = 44.5 % 36.0-50.0 411) MEAN CORPUSCULAR VOLUME (BEAKER) 97.2 fL 82.0-99.0 (test code = 753) MEAN CORPUSCULAR HEMOGLOBIN 33.6 pg 27.0-33.0 H (BEAKER) (test code = 751) MEAN CORPUSCULAR HEMOGLOBIN CONC 34.6 GM/DL 32.0-36.0 (BEAKER) (test code = 752) RED CELL DISTRIBUTION WIDTH 12.6 % 12.0-15.0 (BEAKER) (test code = 412) PLATELET COUNT (BEAKER) (test 190 K/CU MM 150-430 code = 756) MEAN PLATELET VOLUME (BEAKER) 9.6 fL 6.0-11.5 (test code = 754) NUCLEATED RED BLOOD CELLS 0 /100 WBC 0-0 (BEAKER) (test code = 413) NEUTROPHILS RELATIVE PERCENT 88 % (BEAKER) (test code = 429) LYMPHOCYTES RELATIVE PERCENT 7 % (BEAKER) (test code = 430) MONOCYTES RELATIVE PERCENT 5 % (BEAKER) (test code = 431) EOSINOPHILS RELATIVE PERCENT 0 % (BEAKER) (test code = 432) BASOPHILS RELATIVE PERCENT 0 % (BEAKER) (test code = 437) NEUTROPHILS ABSOLUTE COUNT 10.19 K/ L 1.80-8.00 H (BEAKER) (test code = 670) LYMPHOCYTES ABSOLUTE COUNT 0.76 K/ L 1.48-4.50 L (BEAKER) (test code = 414) MONOCYTES ABSOLUTE COUNT (BEAKER) 0.54 K/ L 0.00-1.30 (test code = 415) EOSINOPHILS ABSOLUTE COUNT 0.00 K/ L 0.00-0.50 (BEAKER) (test code = 416) BASOPHILS ABSOLUTE COUNT (BEAKER) 0.02 K/ L 0.00-0.20 (test code = 417) IMMATURE GRANULOCYTES-RELATIVE 1 % 0-0 H PERCENT (BEAKER) (test code = 2801) Blood gas, [id number] 04:33:31 Test Item Value Reference Range Interpretation Comments pH, Arterial (test code 7.40 7.35-7.45 = 2744-1) pCO2, Arterial (test 46 See_Comment H [Autom ated message] code = 2019-) The system [employer] generated this result transmit dennis reference range : 35 - 45 mm Hg. The reference range was not used to interpret this result as normal/abnormal . pO2, Arterial (test 87 See_Comment [Automa dennis message] code = 2703-7) The system [employer] generated this result transmit dennis reference range : 80 - 90 mm Hg. The reference range was not used to interpret this result as normal/abnormal . O2 Sat, Arterial (test 96.7 % 96.0-97.0 code = 2708-6) HCO3, Arterial (test 28 mmol/L 21-29 code = 1960-4) Base Excess, Arterial 2.3 mmol/L -2.0-3.0 (test code = 1925-7) Patient Temperature 36.5 (test code = 8310-5) FIO2 (test code = 1819) 30 Lab Interpretation Abnormal (test code = 41996-3) [facility] [id number] 04:33:31 Test Item Value Reference Range Interpretation Comments PH ARTERIAL (BEAKER) (test code = 7.40 7.35-7.45 383) PCO2 ARTERIAL (BEAKER) (test code 46 mm Hg 35-45 H = 384) PO2 ARTERIAL (BEAKER) (test code = 87 mm Hg 80-90 385) O2 SATURATION ARTERIAL (BEAKER) 96.7 % 96.0-97.0 (test code = 386) HCO3 ARTERIAL (BEAKER) (test code 28 mmol/L -29 = 388) BASE EXCESS ARTERIAL (BEAKER) 2.3 mmol/L -2.0-3.0 (test code = 387) PATIENT TEMPERATURE (BEAKER) (test 36.5 code = 1818) FIO2 (BEAKER) (test code = 1819) 30.0 POCT-GLUCOSE [id number] 01:11:58 Test Item Value Reference Range Interpretation Comments POC-GLUCOSE METER 146 mg/dL 70-110 H : TESTED A T [facility] 1317 (BEAKER) (test code [facility] [address], = 1538) [facility] 77 [address]: Bell Person/Techni diana ID = [id number] for Geor ge, Luis Enriquea RAD, CHEST, 1 VIEW, NON [id number] 19:19:00Reason for exam:->PICC line placementShould this be performed at the bedside?->Yes [facility] 1965 Sex: MFINAL REPORT AP view of the chest dated 12/18/2021 COMPARISON: Same day CLINICALINFORMATION: PICC line placement Comment: Since prior examination, there is interval placement of a right PICC line with the tip seen in the superior vena cava. Signed: Raz Kaplan Verified Date/Time: 12/18/2021 19:19:53 POCT-GLUCOSE [id number] 17:57:19 Test Item Value Reference Range Interpretation Comments POC-GLUCOSE METER 136 mg/dL 70-110 H : Notified RN/MD: TESTED (CLAY) (test code AT [facility] [address] = 1538) [facility] [address]: Bell Person/Techni diana ID = [id number] for [place]av [place] POCT-GLUCOSE [id number] 14:37:48 Test Item Value Reference Range Interpretation Comments POC-GLUCOSE METER 146 mg/dL 70-110 H : TESTED A T [facility] 1317 ([facility]) (test code [facility] [address] [facility], = 1538) [facility] 77 478: Bell Person/Techni diana ID = [id number] for Kenia Heredia CT, CHEST WITH IV CONTRAST- PE TEST [id number] 14:32:00Unlisted Reason for Exam - Click Yes and Enter Reason Below->No [facility] 1965 Sex: MFINAL REPORT CT CHEST WITH CONTRAST (PE PROTOCOL) History provided: Shortness of breath TECHNIQUE: Spiral CT cuts were performed through the chest during rapid IV contrast administration. FINDINGS: Lungs are hyperinflated. Subsegmental atelectatic change within the posterior basicsegment of the right lower lobe. Subsegmental atelectatic change within the posterior basic segment o f the left lower lobe. Pleural thickening or scarring along the left major fissure. No pulmonary nodules are evident. Elevated left hemidiaphragm, likely chronic. ET tube in good position. NG tip in the stomach. Heart is normal in size. No pleural or pericardial effusion. Pulmonary arteries opacify sat isfactorily and show no emboli. Thoracic aorta shows no evidence of aneurysm or dissection. Imaging below the diaphragm shows benign-appearing 2.5 cm low- density nodule of the left adrenal gland. Compression deformity of the T10 vertebral body, likely old. IMPRESSION: Mild bibasilar atelectasis. No signs of pneumonia or pulmonary embolism. No pleural effusions. COMMENT: This exam was performed according to our departmental dose-optimization program, which includes automated exposure control, adjustment of the mA and/or kV according to patient size and/or use of iterative reconstruction technique. Signed: Scar Lozano MDReport Verified Date/Time: 12/18/2021 14:32:14 Reading Location: [facility] Radiology Reading Room POCT-GLUCOSE [id number] 12:27:32 Test Item Value Reference Range Interpretation Comments POC-GLUCOSE METER 147 mg/dL 70-110 H : Notified RN/MD: TESTED (CLAY) (test code AT [facility] [address] PO[address] = 1538) [facility] [address]: Bell Person/Techni diana ID = [id number] for Yoav [place] RAD, CHEST, 1 VIEW, NON [id number] 12:03:00Reason for exam:->ett placementShould this be performed at the bedside?->Yes [facility] : 1965 Sex: MFINAL REPORT Chest AP portable semierect COMPARISON STUDY: 12/18/2021 History provided: Intubation ET tube remains in good position with tip at the level of the clavicles. NG tip inthe stomach. Heart size normal. Moderately elevated left hemidiaphragm. Lungs clear and vascularity normal. Signed: Scar Lozano MDReport Verified Date/Time: 12/18/2021 12:03:26 Reading Location: [facility] Radiology Reading Room [id number] 11:07:20 Test Item Value Reference Range Interpretation Comments PROCALCITONIN (BEAKER) (test code = < ng/mL <0.05 3036) SEPSIS RISK (ng/mL)Low: 0.05-0.50Intermediate: 0.51-2.00High: >=2.01 COMPREHENSIVE METABOLIC [id number] 10:33:59 Test Item Value Reference Range Interpretation Comments TOTAL PROTEIN 7.0 gm/dL 6.0-8.5 (BEAKER) (test code = 770) ALBUMIN (BEAKER) 3.7 g/dL 3.5-5.0 (test code = 1145) ALKALINE PHOSPHATASE 87 U/L 30-115 (BEAKER) (test code = 346) BILIRUBIN TOTAL 0.5 mg/dL 0.1-1.2 (BEAKER) (test code = 377) SODIUM (BEAKER) (test 140 meq/L 135-148 code = 381) POTASSIUM (BEAKER) 4.4 meq/L 3.6-5.5 (test code = 379) CHLORIDE (BEAKER) 109 meq/L 98-106 H (test code = 382) CO2 (BEAKER) (test 21 meq/L 20-29 code = 355) BLOOD UREA NITROGEN 12 mg/dL 10-26 (BEAKER) (test code = 354) CREATININE (BEAKER) 0.80 mg/dL 0.50-1.20 (test code = 358) GLUCOSE RANDOM 129 mg/dL 70-110 H (BEAKER) (test code = 652) CALCIUM (BEAKER) 8.5 mg/dL 8.5-10.5 (test code = 697) AST (SGOT) (BEAKER) 18 U/L 5-40 (test code = 353) ALT (SGPT) (BEAKER) 17 U/L 5-50 (test code = 347) EGFR (BEAKER) (test INSUFFIC IENT CLINICAL code = 1092) DATA TO CALCULA TE ESTIMATED GFR. Bell Person ID - DSENSONOperator ID - DSENSONOperator ID - DSENSONOperator ID - DSENSONOperator ID - DSENSONOperator ID - DSENSONOperator ID - DSENSONOperator ID - DSENSONOperator ID - DSENSONOperator ID - DSENSONOperator ID - DSENSONOperator ID - DSENSONOperator ID - DSENSONOperator ID - DSENSONOperatorID - DSENSONOperator ID - [id number] 10:29:44 Test Item Value Reference Range Interpretation Comments MAGNESIUM (BEAKER) (test code = 2.0 mg/dL 1.5-3.0 627) Bell Person ID - DSENSONOperator ID - DSENSONOperator ID - DSENSONOperator ID - DSENSONLIPID [id number] 10:29:10 Test Item Value Reference Range Interpretation Comments TRIGLYCERIDES (BEAKER) (test code = 157 mg/dL 540) CHOLESTEROL (BEAKER) (test code = 199 mg/dL 631) HDL CHOLESTEROL (BEAKER) (test code 54 mg/dL = 976) LDL CHOLESTEROL CALCULATED (BEAKER) 114 mg/dL (test code = 633) Triglyceride Reference Range: Low Risk <150 Borderline 150-199 High Risk 200-499 Very High Risk >=500Cholesterol Reference Range: Low Risk <200 Borderline 200-239 High Risk >240HDL Cholesterol Reference Range: Low Risk >=60 High Risk <40LDL Cholesterol Reference Range: Optimal <100 Near Optimal 100-129 Borderline 130-159 High 160-189 Very High >=190 Bell Person ID - DSENSONOperator ID - DSENSONOperator ID - DSENSONC-REACTIVE [id number] 10:28:28 Test Item Value Reference Range Interpretation Comments C-REACTIVE PROTEIN (BEAKER) (test 0.23 mg/dL 0.00-0.50 code = 676) Bell Person ID - [id number] 10:26:23 Test Item Value Reference Range Interpretation Comments PHOSPHORUS (BEAKER) (test code = 2.4 mg/dL 2.5-4.5 L 604) Bell Person ID - DSENSONPROTHROMBIN TIME/[id number] 10:25:06 Test Item Value Reference Range Interpretation Comments PROTIME (BEAKER) 11.1 seconds 9.3-12.0 Final Infor mation (test code = 759) (Auto Outp ut) INR (BEAKER) (test 1.01 See_Comment Final Inf ormation code = 370) (Auto Output) [Automated mess age] The system [employer] generated this result transmitted ref erence range: <=5.90. The reference range was not used to int erpret this result as normal/abnormal . RECOMMENDED COUMADIN/WARFARIN INR THERAPY RANGESSTANDARD DOSE: 2.0 - 3.0 Includes: PROPHYLAXIS for venous thrombosis, systemic embolization; TREATMENT for venous thrombosis and/or pulmonary embolus.HIGH RISK: Target INR is 2.5-3.5 for patients with mechanical heart valves.[id number] 10:25:06 Test Item Value Reference Range Interpretation Comments PARTIAL THROMBOPLASTIN 27.9 seconds 23.0-35.0 Final Information TIME (BEAKER) (test (Auto Ou tput) code = 760) [id number] 10:25:05 Test Item Value Reference Range Interpretation Comments D-DIMER QUANTITATIVE 1.64 MG/L FEU <0.50 H Final Information (BEAKER) (test code = (Auto Output) 671) REGARDING D-DIMER RESULTS: The 98% NPV (Negative Predictive Value) for DVT/PE exclusion is 0.50 mg/LFEU as suggested by the business info consultant and as approved by the FDA.BLOOD GAS, [id number] 10:15:09 Test Item Value Reference Range Interpretation Comments PH ARTERIAL (BEAKER) (test code = 7.33 7.35-7.45 L 383) PCO2 ARTERIAL (BEAKER) (test code 42 mm Hg 35-45 = 384) PO2 ARTERIAL (BEAKER) (test code 108 mm Hg 80-90 H = 385) O2 SATURATION ARTERIAL (BEAKER) 97.6 % 96.0-97.0 H (test code = 386) HCO3 ARTERIAL (BEAKER) (test code 22 mmol/L 21-29 = 388) BASE EXCESS ARTERIAL (BEAKER) -4.0 mmol/L -2.0-3.0 L (test code = 387) PATIENT TEMPERATURE (BEAKER) 37.0 (test code = 1818) FIO2 (BEAKER) (test code = 1819) 30.0 RAD, CHEST, 1 VIEW, NON [id number] 10:12:00Reason for exam:->ettShould this be performed at the bedside?->Yes [facility] 1965 Sex: MFINAL REPORT CHEST AP PORTABLE SEMIERECT COMPARISON STUDY: None History provided: Intubated patient Heart size normal. Lungs clear and vascularity normal. ET tube tip at the level of the clavicles. NG tip in the stomach. Signed: Scar Lozanoeport Verified Date/Time: :12:13 Reading Location: [facility] Radiology Reading Room CBC W/PLT COUNT & AUTO [id number] 10:09:38 Test Item Value Reference Range Interpretation Comments WHITE BLOOD CELL COUNT (BEAKER) 4.6 K/ L 4.0-10.0 (test code = 775) RED BLOOD CELL COUNT (BEAKER) 5.16 M/ L 4.20-5.80 (test code = 761) HEMOGLOBIN (BEAKER) (test code = 16.8 GM/DL 13.0-16.8 410) HEMATOCRIT (BEAKER) (test code = 49.8 % 36.0-50.0 411) MEAN CORPUSCULAR VOLUME (BEAKER) 96.5 fL 82.0-99.0 (test code = 753) MEAN CORPUSCULAR HEMOGLOBIN 32.6 pg 27.0-33.0 (BEAKER) (test code = 751) MEAN CORPUSCULAR HEMOGLOBIN CONC 33.7 GM/DL 32.0-36.0 (BEAKER) (test code = 752) RED CELL DISTRIBUTION WIDTH 12.6 % 12.0-15.0 (BEAKER) (test code = 412) PLATELET COUNT (BEAKER) (test 187 K/CU MM 150-430 code = 756) MEAN PLATELET VOLUME (BEAKER) 9.6 fL 6.0-11.5 (test code = 754) NUCLEATED RED BLOOD CELLS 0 /100 WBC 0-0 (BEAKER) (test code = 413) NEUTROPHILS RELATIVE PERCENT 80 % (BEAKER) (test code = 429) LYMPHOCYTES RELATIVE PERCENT 15 % (BEAKER) (test code = 430) MONOCYTES RELATIVE PERCENT 3 % (BEAKER) (test code = 431) EOSINOPHILS RELATIVE PERCENT 2 % (BEAKER) (test code = 432) BASOPHILS RELATIVE PERCENT 0 % (BEAKER) (test code = 437) NEUTROPHILS ABSOLUTE COUNT 3.65 K/ L 1.80-8.00 (BEAKER) (test code = 670) LYMPHOCYTES ABSOLUTE COUNT 0.67 K/ L 1.48-4.50 L (BEAKER) (test code = 414) MONOCYTES ABSOLUTE COUNT (BEAKER) 0.12 K/ L 0.00-1.30 (test code = 415) EOSINOPHILS ABSOLUTE COUNT 0.07 K/ L 0.00-0.50 (BEAKER) (test code = 416) BASOPHILS ABSOLUTE COUNT (BEAKER) 0.02 K/ L 0.00-0.20 (test code = 417) IMMATURE GRANULOCYTES-RELATIVE 1 % 0-0 H PERCENT (BEAKER) (test code = 2801)
--- NOTE | 2022-08-11 22:33 | EDPHYS ---
Physician Documentation [facility] Name: Daniel George Age: 57 yrs Sex: Male : 1965 Arrival Date: 08/11/2022 Time: 21:07 Bed IW9 Private MD: ED Physician Neal Wharton HPI: 08/11 22:32 This 57 yrs old Male presents to ER via Law Enforcement with complaints of Laceration pm1 To Arm. 22:32 The patient has a laceration related to: Working on his vehicle occurred at home, and pm1 there are no complicating factors. The laceration(s) is(are) located on the left wrist. Onset: The symptoms/episode began/occurred 3 day(s) ago. Associated signs and symptoms: Pertinent negatives: suspected foreign body, Fever, discharge. The patient has not experienced similar symptoms in the past. The patient has not recently seen a physician. Patient presenting to ER with complaints of a laceration to left forearm, left wrist that resulted from working on his vehicle as he was changing a gasket. Patient is accompanied by law enforcement and needs evaluation to determine if sutures are needed. Laceration occurred 3 days ago. Historical: - Allergies: 22:27 No Known Allergies; tw5 - PMHx: 22:27 Hernia; Hyperlipidemia; Hypertension; tw5 - Immunization history:: Last tetanus immunization: up to date. - Social history:: Smoking status: Patient reports the use of cigarette tobacco products, smokes one-half pack cigarettes per day, Patient uses alcohol, admits to "couple of beers" a day. ROS: 22:32 Constitutional: Negative for fever, chills, and weight loss, Cardiovascular: Negative pm1 for chest pain, palpitations, and edema, Respiratory: Negative for shortness of breath, cough, wheezing, and pleuritic chest pain, MS/Extremity: Negative for injury and deformity. 22:32 Neuro: Negative for headache, weakness, numbness, tingling, and seizure. 22:32 Skin: Positive for laceration(s), of the left wrist. 22:32 All other systems are negative. Exam: 22:32 Constitutional: This is a well developed, well nourished patient who is awake, alert, pm1 and in no acute distress. Head/Face: Normocephalic, atraumatic. 22:32 Eyes: Exam is negative for acute changes. 22:32 ENT: Exam is negative for acute changes. 22:32 Cardiovascular: Exam negative for acute changes, Rate: normal, Rhythm: regular, Pulses: no pulse deficits are appreciated. 22:32 Respiratory: Exam negative for acute changes, respiratory distress, shortness of breath. 22:32 Skin: Appearance: normal except for affected area, injury, laceration(s), that can be described as no foreign body, linear, without bleeding, Superficial linear lacerations and abrasions present to left wrist. Negative for cellulitis or discharge. Largest laceration approximately 4 cm long by 2 mm deep.. 22:32 Neuro: Exam negative for acute changes, Orientation: is normal, Mentation: is normal, Motor: is normal, moves all fours. Vital Signs: 22:25 BP 114 / 97; Pulse 81; Resp 18; Temp 98.1; Pulse Ox 95% on R/A; Weight 86.18 kg; Height tw5 5 ft. 11 in. (180.34 cm); Pain 0/10; 22:25 Body Mass Index 26.50 (86.18 kg, 180.34 cm) tw5 MDM: 22:31 Data reviewed: vital signs. pm1 22:32 Counseling: I had a detailed discussion with the patient and/or guardian regarding: the pm1 historical points, exam findings, and any diagnostic results supporting the discharge/admit diagnosis, the need for outpatient follow up, a family practitioner, to return to the emergency department if symptoms worsen or persist or if there are any questions or concerns that arise at home. 22:32 Patient medically screened. pm1 22:32 Differential diagnosis: superficial laceration, Abrasion, cellulitis. pm1 22:34 ED course: Superficial laceration to left wrist status approximately 3 days old per pm1 patient. No apparent signs of cellulitis or abscess. Due to being 3 days old and superficial, suturing is not required. We will send patient home with oral antibiotics, instructions on care of wound, and will cleanse wound and apply dressing prior to disposition with police officers. 08/11 22:33 Order name: Wound Care; Complete Time: 22:39 pm1 Administered Medications: 22:39 CANCELLED (Patient Refused): Tetanus-Diphtheria Toxoid Adult 0.5 ml IM once; Provide tw5 Vaccine Information Statement (VIS). Disposition: 08/12 03:09 Co-signature as Attending Physician, Neal Wharton MD. rn 03:10 I reviewed the patient's care provided by the Advanced Practice Provider and agree with rn the diagnosis and treatment plan. Disposition Summary: 08/11/22 22:32 Discharge Ordered Location: Home pm1 Problem: new pm1 Symptoms: have improved pm1 Condition: Stable pm1 Diagnosis - Laceration without foreign body of left wrist pm1 Followup: pm1 - With: Emergency Department - When: As needed - Reason: Worsening of condition Followup: pm1 - With: Private Physician - When: 2 - 3 days - Reason: Recheck today's complaints, Continuance of care, Re-evaluation by your physician Discharge Instructions: - Discharge Summary Sheet pm1 - Nonsutured Laceration Care pm1 Forms: - Medication Reconciliation Form pm1 - Thank You Letter pm1 - Antibiotic Education pm1 - Prescription Opioid Use pm1 Prescriptions: - Cephalexin 500 mg Oral Capsule - take 1 capsule by ORAL route every 8 hours for 10 days; 30 capsule; Refills: 0, pm1 Product Selection Permitted Signatures: Neal Wharton MD MD rn Donnie Sharif, ELECTRIC ACCOUNTING MACHINE OPERATOR ELECTRIC ACCOUNTING MACHINE OPERATOR pm1 Keshia Donald tw5 Corrections: (The following items were deleted from the chart) 08/11 22:39 22:32 Tetanus-Diphtheria Toxoid Adult 0.5 ml IM once; Provide Vaccine Information tw5 Statement (VIS). ordered. pm1
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
[2022-08-11 22:53] VITALS: BP 114/97; TEMP 98.1; O2SAT 95
== END 2022-08-11 22:42 | disposition home or self-care (01) ==
LOC: ER 21:06 → EDSTATUS 21:06 → ER 22:42
DX: S61.512A Laceration without foreign body of left wrist, initial encounter (principal); F17.210 Nicotine dependence, cigarettes, uncomplicated
CPT/HCPCS: 99283

== ENCOUNTER 2023-09-06 23:55 | Inpatient (IN) | payer OTHER ==
[2023-09-07] MEDS ORDERED: ETOMIDATE 20 MG/10 ML VIAL IV ONE (00:20)
[2023-09-07] MEDS ORDERED: propofoL 1,000 MG/100 ML VIAL IV ONE (00:20)
[2023-09-07] MEDS ORDERED: ROCURONIUM 50 MG/5 ML VIAL IV ONE (00:21)
[2023-09-07] MEDS ORDERED: MIDAZOLAM HCL IN 0.9 % NACL/PF 100 MG/100 ML BAG IVPB ONE (00:21)
[2023-09-07 00:43] LABS: Blood O2 Saturation 97.2 % (92-98.5)
[2023-09-07 00:44] LABS: Arterial Blood Carboxyhemoglob 0.8 % (0-1.5); Blood Gas Oxyhemoglobin 94.8 % (94-97)
[2023-09-07 00:55] LABS: Absolute Lymphocytes (CBC) 1.1 K/uL (0.7-4.9); Hematocrit 50.6 % (39.6-49.0); Lymphocytes % 3.3 % (15.3-44.8); MCV 98.3 fL (80-100); MPV 8.5 fL (7.6-11.3); Platelets 497 thou/uL (152-406); RBC Red Blood Cell Count 5.15 M/uL (4.33-5.43)
[2023-09-07 00:57] LABS: Protime INR 1.15
[2023-09-07 01:17] LABS: Albumin 2.6 g/dL (3.4-5.0); Bilirubin Total 0.8 mg/dL (0.2-1.0); Potassium 2.9 mEq/L (3.5-5.1); Protein, Total 7.5 g/dL (6.4-8.2)
[2023-09-07 01:27] LABS: Blood Morphology Comment NOT SEEN (NOT SEEN); Platelet Estimate ADEQ
[2023-09-07 02:06] LABS: Specific Gravity 1.015 (1.005-1.030); Urine Bacteria <20 /HPF (<20); Urine Bilirubin 1+ (Negative); Urine Blood 3+ (OVER) (Negative); Urine Clarity Extremely Turbid (Clear); Urine Color Yellow (Yellow); Urine Glucose NEGATIVE (Negative); Urine Mucus Slight /HPF (None Seen); Urine Protein 1+ (Negative); Urine RBC <5 /HPF (None Seen); Urine Urobilinogen 1+ (Normal); Urine pH 5.5 (5.0-7.0)
[2023-09-07 02:12] LABS: Barbiturates NEGATIVE (NEGATIVE); Benzodiazepines POSITIVE (NEGATIVE); Cocaine NEGATIVE (NEGATIVE); METHAMPHETAM NEGATIVE (NEGATIVE); Methadone NEGATIVE (NEGATIVE); Opiates NEGATIVE (NEGATIVE); Phencyclidine NEGATIVE (NEGATIVE); THC Cannibis POSITIVE (NEGATIVE)
[2023-09-07] MEDS ORDERED: VANCOMYCIN 1 GM/VIAL ONE (02:31)
[2023-09-07] MEDS ORDERED: NA CHLORIDE 0.9% 500 ML ONE (02:31)
[2023-09-07] MEDS ORDERED: KCL 20 MEQ/100 mL IVPB 100 ML IV ONE ×2 (02:31→04:56)
[2023-09-07] MEDS ORDERED: PIPERACIL/TAZO 3.375 GM VIAL IV ONE (02:32)
[2023-09-07] MEDS ORDERED: NA CHLORIDE 0.9% 2,000 ML ONE (02:32)
[2023-09-07] MEDS ORDERED: NA CHLORIDE 0.9% 100 ML ONE ×4 (02:33→19:14)
--- NOTE | 2023-09-07 03:06 | ER ---
Nurse's Notes [facility] Name: Daniel George Age: 58 yrs Sex: Male : 1965 Arrival Date: 09/06/2023 Time: 23:55 Bed 3 Private MD: Diagnosis: Other pneumonia, unspecified organism;Severe sepsis without septic shock;Acute respiratory failure, acute aspiration pneumonia, left lung consolidative pneumonia, adrenal adenoma, pulmonary nodule, sepsis. Physical deconditioning Presentation: 09/06 23:56 Chief complaint: EMS states: 58 year old male was found unresponsive. family members ha1 report he has been laying on the floor of his bedroom for almost 24 hours. they thought he was just drunk and sleeping. pt. was intubated at seen. 4 of Narcan were given. 23:56 Coronavirus screen: Vaccine status:. Ebola Screen: No symptoms or risks identified at [facility] this time. Initial Sepsis Screen: Does the patient meet any 2 criteria? No. Patient's initial sepsis screen is negative. Does the patient have a suspected source of infection? No. Patient's initial sepsis screen is negative. Risk Assessment: Do you want to hurt yourself or someone else? Unable to obtain. Onset of symptoms was September 06, 2023. 23:56 Method Of Arrival: EMS: [place] [id number] 23:56 Acuity: KAY 1 [facility] Triage Assessment: 23:56 General: Appears unkempt, Behavior is unresponsive. Pain: Unable to use pain scale. ha1 Patient is intubated. Neuro: Level of Consciousness is unresponsive. Cardiovascular: Heart tones S1 S2 present Capillary refill < 3 seconds. Respiratory: Airway via oral intubation Respiratory effort is even, unlabored, Respiratory pattern is regular, symmetrical. GI: Abdomen is flat, non-distended. Historical: - Allergies: 09/07 00:59 No Known Allergies; ha1 - Home Meds: 00:59 carvedilol oral [Active]; diazepam Oral [Active]; Famotidine Oral [Active]; ha1 losartan-hydrochlorothiazide 50-12.5 mg oral tablet [Active]; nifedipine 30 mg Oral Tablet, Extended Release 24 hr [Active]; - PMHx: 01:01 Hernia; Hyperlipidemia; Hypertension; stroke (2022); ha1 - Immunization history:: Adult Immunizations unknown. - Social history:: Smoking status: unknown. - Family history:: not pertinent. Screenin:05 Abuse screen: unable to obtain. Nutritional screening: No deficits noted. Tuberculosis ha1 screening: No symptoms or risk factors identified. Assessment: 02 23:56 Reassessment: SEE TRIAGE ASSESSMENT. ha1 09/07 01:00 General: Appears comfortable. Respiratory: Respiratory effort is even, unlabored, ha1 Respiratory pattern is regular, symmetrical. 02:00 General: Appears comfortable. Respiratory: Airway via oral intubation Respiratory ha1 effort is even, unlabored, Respiratory pattern is regular, symmetrical. 03:00 Respiratory: Airway via oral intubation Respiratory effort is even, unlabored, ha1 Respiratory pattern is regular, symmetrical. 04:00 General: Appears comfortable. Respiratory: Airway via oral intubation Respiratory ha1 effort is even, unlabored, Respiratory pattern is regular, symmetrical. Vital Signs: 09/06 23:56 BP 143 / 107; Pulse 115; Resp 20 A; Temp 97.5(T); Pulse Ox 100% on ETT vent; FiO2 100 ha1 %; Height 5 ft. 9 in. ; 02 00:16 Weight 83.91 kg; ha1 01:00 BP 119 / 97; Pulse 114; Resp 20 A; Pulse Ox 100% on ETT vent; ha1 02:00 BP 118 / 98; Pulse 112; Resp 20 A; Temp 97(Ca); Pulse Ox 100% on ETT vent; ha1 03:41 BP 98 / 69; Pulse 88; Resp 20 S; Temp 96.5(Ca); Pulse Ox 100% on ETT vent; FiO2 100 %; ha1 ED Course: 09/06 23:56 Patient arrived in ED. rv1 23:56 Arm band placed on left wrist. ha1 23:56 Patient has correct armband on for positive identification. Placed in gown. Bed in low ha1 position. Call light in reach. Side rails up X2. 09/07 00:00 Catracho Garner MD is Attending Physician. sp4 00:19 Phelan cath inserted, using sterile technique, 16 Fr., by ED staff, balloon inflated, to jj7 gravity drainage, urine specimen collected. 00:29 Assisted provider with intubation using 8.5 mm ETT via oral route. ET tube secured at ha1 24cm at the lips. Set up intubation tray. Intubated by Catracho Garner MD Placement verified by CO2 detector w/ + color change, auscultating bilateral breath sounds, End-tidal CO2 montioring CXR, Patient tolerated well. 00:31 NGT: inserted 14 Fr. other ORAL to intermittent suction. Returned gastric contents. jj7 Patient tolerated well. OG TUBE. 00:37 Suctioned orally - large amount thick yellow sputum. Assist ventilation with ventilator.jj7 00:45 Assisted provider with central line placement. Set up central line tray. Triple lumen ha1 line placed in right subclavian. Line placed by Catracho Garner MD Placement verified by CXR, blood return, Dressed with Blood was collected. Patient tolerated well. Before procedure, did Practitioner(s) obtain informed consent? Yes. Patient \T\ family education about procedure, CLABSI prevention and S/S of infection? Yes. Was handwashing/sanitizing done immediately prior to procedure? Yes. Was patient positioned to in a way to prevent air embolism? Yes. Was procedure site sterilized? Yes, with Was the site allowed to dry? Yes. Was local anesthetic and/or sedation utilized? Yes. During the procedure, did the Practitioner(s) maintain a sterile field? Yes. 00:59 Triage completed. ha1 01:28 Chest Single View XRAY In Process Unspecified. EDMS 01:32 Urine Drug Screen Sent. ha1 01:35 Blood Culture Adult (2) Sent. ha1 01:35 Urinalysis w/ reflexes Sent. ha1 02:08 CT Traumagram (Head C Spine CAP W Con) In Process Unspecified. EDMS 03:03 Joao Jack MD is Hospitalizing Provider. sp4 Administered Medications: 00:27 Drug: Etomidate IVP 40 mg IVP once Route: IVP; Site: left jugular; ha1 01:00 Follow up: Response: No adverse reaction ha1 00:28 Drug: Rocuronium IVP 100 mg IVP once Route: IVP; Site: left jugular; ha1 01:00 Follow up: Response: No adverse reaction ha1 00:43 Drug: Midazolam IVP or IV 5 mg IVP once Route: IVP; Site: left jugular; ha1 01:00 Follow up: Response: No adverse reaction; RASS: Moderate sedation (-3) ha1 00:45 Drug: Midazolam IVP or IV 0.01 mg/kg/h IV at calculated rate See Administration ha1 Instructions; (Standard concentration: 100 mg / 100 mL NS); Recommended max rate 0.1 mg/kg/hr; Titrate 0.01 mg/kg/hr as often as every 30 minutes to achieve goal (see titration policy); Goal parameter RASS 0 to -2 Route: IV; Rate: calculated rate; Site: left jugular; 01:00 Follow up: Response: No adverse reaction; RASS: Moderate sedation (-3); IV Status: ha1 Infusion continued 00:45 Drug: NS 0.9% IV (30 ml/kg) 30 ml/kg IV at bolus once; Sepsis Protocol Route: IV; Rate: ha1 bolus; Site: left jugular; 01:30 Drug: Piperacillin-Tazobactam IVPB 3.375 grams IVPB once over 60 mins; (mix in NS 100 ha1 mL) Route: IVPB; Infused Over: 60 mins; Site: left jugular; 02:30 Follow up: Response: No adverse reaction; IV Status: Completed infusion; IV Intake: ha1 100ml 02:50 Drug: Potassium Chloride IV 20 mEq IV at calculated rate once; administer over 1-2 ha1 hours Route: IV; Rate: calculated rate; Site: right subclavian; 04:30 Follow up: Response: No adverse reaction; IV Status: Infusion continued ha1 02:55 Drug: vancoMYCIN IVPB 2 grams IVPB at calculated rate once Route: IVPB; Rate: ha1 calculated rate; Site: right subclavian; 03:19 Not Given (Physician Discretion): sodium bicarbonate1 amp IVP once; (50 mL); equals 50 ha1 mEq 03:20 Not Given (Physician Discretion): sodium bicarbonate1 amp IVP once; (50 mL); equals 50 ha1 mEq 04:06 Drug: Potassium Chloride IV 20 mEq IV at calculated rate once; administer over 1-2 ha1 hours {Note: WILL BE GIVEN BY ICU NURSE WHEN THE FIRST 20 MEQ ORDER IS COMPLETE.} Route: IV; Rate: calculated rate; Site: right subclavian; 04:30 Follow up: Response: No adverse reaction; IV Status: Infusion continued ha1 04:06 Drug: Thiamine IV 500 mg IV at bolus once Route: IV; Rate: bolus; Site: left jugular; ha1 04:30 Follow up: Response: No adverse reaction ha1 04:08 Drug: Propofol IV 5 mcg/kg/min IV at calculated rate See Administration Instructions; ha1 Standard concentration 1000 mg / 100 mL; Recommended max rate 50 mcg/kg/min; Titrate 2 mcg/kg/min every 5 minutes to achieve goal (see titration policy); Goal parameter RASS score 0 to -2 Route: IV; Rate: calculated rate; Site: right subclavian; 04:30 Follow up: Response: No adverse reaction; RASS: Moderate sedation (-3); IV Status: ha1 Infusion continued Medication: 01:06 VIS not applicable for this client. ha1 Intake: 02:30 IV: 100ml; Total: 100ml. ha1 Ventilator: 00:37 Fi02: 100%; Rate: 20min; T.V.: 500ml; Peep: 5cm; Mode: CMV; ET tube: 8.5 fr (Oral); jj7 Outcome: 03:05 Decision to Hospitalize by Provider. sp4 04:30 Patient left the ED. 04:30 Condition: stable 04:30 Admitted to ICU accompanied by nurse, via stretcher, room 5, with oxygen, on monitor, ha1 with chart, Report called to YA Schmitt Signatures: Dispatcher [employer] EDMS Barbra Rodriguez RN RN ha1 Keyon Fang RN RN jj7 Estefanía Serrano rv1 Catracho Garner MD MD sp4 Corrections: (The following items were deleted from the chart) 01:33 00:35 Midazolam IVP or IV 5 mg IVP in left jugular ha1 07:17 02:00 Reassessment: ha1 ha1 07:22 04:30 Response: No adverse reaction; IV Status: Infusion continued ha1 ha1
--- NOTE | 2023-09-07 03:06 | EDPHYS ---
Physician Documentation [facility] Name: Daniel George Age: 58 yrs Sex: Male : 1965 Arrival Date: 09/06/2023 Time: 23:55 Bed 3 Private MD: ED Physician Catracho Garner HPI: 09/07 00:01 This 58 yrs old Male presents to ER via Unassigned with complaints of sp4 unresponsive . 03:05 58-year-old male brought in by EMS intubated GCS of 3. Patient was found at home on the sp4 floor with a GCS of 6 poor gag reflex, laying in his own urine and basically there is a report of alcohol use. Patient was reported to use a lot of alcohol and yesterday he fell asleep on the bed of floor and remained there until family determined he was unresponsive. EMS on arrival established left tibial intraosseous IV, then administer rocuronium with etomidate and intubated patient with size 7.5 ET tube. On arrival patient appears malnourished and physically deconditioned also with poor hygiene. Patient is familiar to me from prior ER evaluation for acute CVA. . Full HPI and ROS not available.. Historical: - Allergies: 00:59 No Known Allergies; ha1 - Home Meds: 00:59 carvedilol oral [Active]; diazepam Oral [Active]; Famotidine Oral [Active]; ha1 losartan-hydrochlorothiazide 50-12.5 mg oral tablet [Active]; nifedipine 30 mg Oral Tablet, Extended Release 24 hr [Active]; - PMHx: 01:01 Hernia; Hyperlipidemia; Hypertension; stroke (2022); ha1 - Immunization history:: Adult Immunizations unknown. - Social history:: Smoking status: unknown. - Family history:: not pertinent. ROS: 03:08 Constitutional: ROS not available sp4 03:08 All other systems are negative, 03:08 Unable to obtain ROS due to comatose state, Exam: 03:08 Constitutional: This is a well developed, physically debilitated male, arrived and sp4 intubated condition, GCS 3, left proximal tibial intraosseous IV access. Patient is covered and urine and other dirt and debris. Incontinent of urine on arrival Head/Face: Normocephalic, atraumatic. Eyes: Pupils equal round and reactive to light, pupils are reactive bilaterally at 3 mm each ENT: Nares patent. No nasal discharge, no septal abnormalities noted. Tympanic membranes are normal and external auditory canals are clear. Oropharynx with no redness, swelling, or masses, exudates, or evidence of obstruction, uvula midline. Mucous membranes moist. Poor dentition Neck: Trachea midline, no thyromegaly or masses palpated, and no cervical lymphadenopathy. Chest/axilla: Normal chest wall appearance and motion. Nontender with no deformity. No lesions are appreciated. Cardiovascular: Regular rate and rhythm with a normal S1 and S2. No gallops, murmurs, or rubs. Normal PMI, no JVD. No pulse deficits. Signs of dehydration Respiratory: Lungs have equal breath sounds bilaterally, clear to auscultation and percussion. Ventilated on arrival Abdomen/GI: Soft, nondistended , with normal bowel sounds. Back: No spinal deformities Male : Normal genitalia with no discharge or lesions. Circumcised male Skin: Warm, dry with poor skin turgor, generalized pallor, poor hygiene MS/ Extremity: Pulses equal, no cyanosis. No deformities Neuro: GCS 3 intubated Vital Signs: 09/06 23:56 BP 143 / 107; Pulse 115; Resp 20 A; Temp 97.5(T); Pulse Ox 100% on ETT vent; FiO2 100 ha1 %; Height 5 ft. 9 in. ; 09/07 00:16 Weight 83.91 kg; ha1 01:00 BP 119 / 97; Pulse 114; Resp 20 A; Pulse Ox 100% on ETT vent; ha1 02:00 BP 118 / 98; Pulse 112; Resp 20 A; Temp 97(Ca); Pulse Ox 100% on ETT vent; ha1 03:41 BP 98 / 69; Pulse 88; Resp 20 S; Temp 96.5(Ca); Pulse Ox 100% on ETT vent; FiO2 100 %; ha1 Ventilator: 00:37 Fi02: 100%; Rate: 20min; T.V.: 500ml; Peep: 5cm; Mode: CMV; ET tube: 8.5 fr (Oral); [id number] Procedures: 00:39 Intubation: Ventilated with 100% NRB prior to procedure. O2 saturation prior to sp4 procedure was 100 %. Intubated Glyde scope assisted intubation using S4 with 8.5 mm ETT. was successful on first attempt. Ventilated with Ambu bag. Tube secured with ETT michelle at center of mouth measured 24 cm at lip. Placement verified by CXR, CO2 detector with (+) color change, auscultating bilateral breath sounds, O2 saturation after procedure was 100 %. Patient tolerated well, 7.5 ET tube exchanged to 8.5 ET tube for better ventilation . 01:11 Central Line: the site was prepped with in sterile fashion, Hibicleelder , a triple lumen sp4 catheter was inserted, in the right internal jugular vein, in 1 attempts. placement was verified, by CXR, by blood return, Ultrasound guidance , the site was dressed with Tegaderm, using sterile technique, the patient tolerated the procedure, well, Line placed for resuscitation. MDM: 01:07 Patient medically screened. sp4 02:29 ED course: EXAM DESCRIPTION: Chest Single View CLINICAL HISTORY: after intubation and sp4 line COMPARISON: None. FINDINGS: Single frontal view of the chest. Tubes and lines: [Endotracheal tube with tip 4 cm above the cortes. Right IJ central venous catheter tip in the SVC. NG tube with tip curled in the stomach. Cardiomediastinal silhouette: Heart is not enlarged. Lungs: Mild perihilar opacities. Elevation left hemidiaphragm. No pneumothorax. Bones: Degenerative change of the shoulders. Upper abdomen: No additional findings. IMPRESSION: 1. Endotracheal tube and right IJ central venous catheter in appropriate position. 2. Mild bilateral perihilar opacities. . 03:01 ED course: IMPRESSION: 1. No acute intracranial abnormality by CT criteria. 2. No acute sp4 fracture or subluxation of the cervical spine. 3. Consolidation of the left lower lobe with volume loss. Filling defect in the left lower lobe bronchi. These findings could be seen with aspiration/pneumonia. Other causes of endobronchial obstruction remain considerations. Continued follow-up recommended. 4. Patchy left upper lung airspace consolidation with air bronchograms. These findings could be seen with pneumonia. 5. Mild long segment wall thickening of the transverse and descending colon. These findings could be seen with nonspecific colitis. 6. Diverticulosis without evidence of acute diverticulitis. 7. Enlarged prostate. 8. Mild wall thickening of the urinary bladder. This could be seen with cystitis or chronic bladder outlet obstruction. 9. 2.2 cm left adrenal mass, probable benign adenoma. Recommend adrenal washout CT or chemical shift MRI. 4 mm right solid pulmonary nodule. Per Fleischner Society Guidelines, no routine follow-up imaging is recommended. These guidelines do not apply to immunocompromised patients and patients with cancer. Follow up in patients with significant comorbidities as clinically warranted. For lung cancer screening, adhere to Lung-RADS . 03:12 Differential Diagnosis altered mental status, sepsis, flu. Data reviewed: vital signs, 4 nurses notes, EMS record, old medical records, lab test result(s), EKG, radiologic studies. Consideration of Admission/Observation Patient was admitted/placed on observation. Escalation of care including admission/observation considered. Management of patient was discussed with the following: Hospitalist: Guero PADILLA . ED course: Patient discussed with hospitalist and admitted to ICU in stabilized condition.. 09/07 00:03 Order name: Blood Culture Adult (2) 4 09/07 00:03 Order name: CBC with Diff; Complete Time: 01:36 4 09/07 00:03 Order name: CMP; Complete Time: 01:36 sp4 09/07 00:03 Order name: Lactate w/ 2H reflex if indic.; Complete Time: 01:36 4 09/07 00:03 Order name: Protime (+inr); Complete Time: 01:08 4 09/07 00:03 Order name: Ptt, Activated; Complete Time: 01: sp4 09/07 00:03 Order name: Urinalysis w/ reflexes; Complete Time: 02:27 4 09/07 00:03 Order name: ABG; Complete Time: : sp4 09/07 00:06 Order name: Urine Drug Screen; Complete Time: 02:27 sp4 09/07 00:06 Order name: Alcohol Level; Complete Time: 01:08 sp4 09/07 00:21 Order name: Glucose, Ancillary Testing; Complete Time: 01:08 EDMS 09/07 00:57 Order name: Manual Differential; Complete Time: :36 EDMS 09/07 03:37 Order name: Basic Metabolic Panel EDMS 09/07 03:37 Order name: Basic Metabolic Panel EDMS 09/07 03:37 Order name: CBC with Automated Diff EDMS 09/07 03:37 Order name: CBC with Automated Diff EDMS 09/07 00:06 Order name: CT Traumagram (Head C Spine CAP W Con) 4 09/07 01:08 Order name: Chest Single View XRAY 4 09/07 00:03 Order name: EKG; Complete Time: 00:4 09/07 00:03 Order name: Accucheck; Complete Time: 4 09/07 00:03 Order name: Cardiac monitoring; Complete Time: 4 09/07 00:03 Order name: Cath; Complete Time: 4 09/07 00:03 Order name: EKG - Nurse/Tech; Complete Time: 4 09/07 00:03 Order name: IV Saline Lock - Large Bore; Complete Time: 4 09/07 00:03 Order name: Labs collected and sent; Complete Time: 4 09/07 00:03 Order name: O2 Per Protocol; Complete Time: 4 09/07 00:03 Order name: O2 Sat Monitoring; Complete Time: 4 09/07 00:03 Order name: Vital Signs; Complete Time: 4 09/07 00:06 Order name: NG Tube; Complete Time: :32 4 Administered Medications: 00:27 Drug: Etomidate IVP 40 mg IVP once Route: IVP; Site: left jugular; ha1 01:00 Follow up: Response: No adverse reaction ha1 00:28 Drug: Rocuronium IVP 100 mg IVP once Route: IVP; Site: left jugular; ha1 01:00 Follow up: Response: No adverse reaction ha1 00:43 Drug: Midazolam IVP or IV 5 mg IVP once Route: IVP; Site: left jugular; ha1 01:00 Follow up: Response: No adverse reaction; RASS: Moderate sedation (-3) ha1 00:45 Drug: NS 0.9% IV (30 ml/kg) 30 ml/kg IV at bolus once; Sepsis Protocol Route: IV; Rate: ha1 bolus; Site: left jugular; 00:45 Drug: Midazolam IVP or IV 0.01 mg/kg/h IV at calculated rate See Administration ha1 Instructions; (Standard concentration: 100 mg / 100 mL NS); Recommended max rate 0.1 mg/kg/hr; Titrate 0.01 mg/kg/hr as often as every 30 minutes to achieve goal (see titration policy); Goal parameter RASS 0 to -2 Route: IV; Rate: calculated rate; Site: left jugular; 01:00 Follow up: Response: No adverse reaction; RASS: Moderate sedation (-3); IV Status: ha1 Infusion continued 01:30 Drug: Piperacillin-Tazobactam IVPB 3.375 grams IVPB once over 60 mins; (mix in NS 100 ha1 mL) Route: IVPB; Infused Over: 60 mins; Site: left jugular; 02:30 Follow up: Response: No adverse reaction; IV Status: Completed infusion; IV Intake: ha1 100ml 02:50 Drug: Potassium Chloride IV 20 mEq IV at calculated rate once; administer over 1-2 ha1 hours Route: IV; Rate: calculated rate; Site: right subclavian; 04:30 Follow up: Response: No adverse reaction; IV Status: Infusion continued ha1 02:55 Drug: vancoMYCIN IVPB 2 grams IVPB at calculated rate once Route: IVPB; Rate: ha1 calculated rate; Site: right subclavian; 03:19 Not Given (Physician Discretion): sodium bicarbonate1 amp IVP once; (50 mL); equals 50 ha1 mEq 03:20 Not Given (Physician Discretion): sodium bicarbonate1 amp IVP once; (50 mL); equals 50 ha1 mEq 04:06 Drug: Potassium Chloride IV 20 mEq IV at calculated rate once; administer over 1-2 ha1 hours {Note: WILL BE GIVEN BY ICU NURSE WHEN THE FIRST 20 MEQ ORDER IS COMPLETE.} Route: IV; Rate: calculated rate; Site: right subclavian; 04:30 Follow up: Response: No adverse reaction; IV Status: Infusion continued ha1 04:06 Drug: Thiamine IV 500 mg IV at bolus once Route: IV; Rate: bolus; Site: left jugular; ha1 04:30 Follow up: Response: No adverse reaction ha1 04:08 Drug: Propofol IV 5 mcg/kg/min IV at calculated rate See Administration Instructions; ha1 Standard concentration 1000 mg / 100 mL; Recommended max rate 50 mcg/kg/min; Titrate 2 mcg/kg/min every 5 minutes to achieve goal (see titration policy); Goal parameter RASS score 0 to -2 Route: IV; Rate: calculated rate; Site: right subclavian; 04:30 Follow up: Response: No adverse reaction; RASS: Moderate sedation (-3); IV Status: ha1 Infusion continued Disposition Summary: 09/07/23 03:05 Hospitalization Ordered Notes: Hospitalization Status: Inpatient Admission sp4 Provider: Joao Jack sp4 Condition: Serious sp4 Problem: new sp4 Symptoms: have improved sp4 Bed/Room Type: Standard sp4 Location: Intensive Care Unit(09/07/23 03:15) rv1 Room Assignment: 5-(09/07/23 03:15) rv1 Diagnosis - Other pneumonia, unspecified organism sp4 - Severe sepsis without septic shock sp4 - Acute respiratory failure, acute aspiration pneumonia, left lung consolidative sp4 pneumonia, adrenal adenoma, pulmonary nodule, sepsis. Physical deconditioning Forms: - Medication Reconciliation Form sp4 - SBAR form sp4 - Leadership Thank You Letter sp4 Critical care time excluding procedures: 03:12 Critical care time: Bedside Care: 36 minutes, Consultation: 12 minutes. Total time: 48 sp4 minutes Signatures: Dispatcher [employer] Barbra Norwood RN RN 1 Estefanía Serrano rv1 Catracho Garner MD MD sp4 Corrections: (The following items were deleted from the chart) 03:15 03:05 Telemetry/MedSurg (observation) sp4 rv1 03:15 03:05 sp4 rv1
[2023-09-07] MEDS ORDERED: ONDANSETRON 4 MG/2 ML VIAL IV PRN (03:29)
[2023-09-07] MEDS ORDERED: ACETAMINOPHEN 650MG/RECT SUPP PR PRN (03:29)
--- NOTE | 2023-09-07 03:37 | P.HP ---
Certification for Inpatient Patient admitted to: Observation With expected LOS: <2 Midnights Practitioner: I am a practitioner with admitting privileges, knowledge of patient current condition, hospital course, and medical plan of care. Services: Services provided to patient in accordance with Admission requirements found in Title 42 Section 412.3 of the Code of Federal Regulations Patient History Date of Service: 09/07/23 Reason for admission: AMS, aspiration pneumonia, drug abuse. Allergies No Known Allergies Allergy (Verified 03/15/18 13:42) Home Medications: Metoprolol Succinate 50 mg PO [id number] 03/15/18 Review of Systems is unable to be obtained (altered mentation.) Physical Examination - Vital Signs Pulse: 116 Pulse Ox (%): 96 - Physical Exam General: Other (sedated.) HEENT: Atraumatic Neck: Supple Respiratory: Normal air movement Cardiovascular: Regular rate/rhythm, Normal S1 S2 Gastrointestinal: Soft and benign Musculoskeletal: No swelling Neurological: Other (sedated.) - Studies Laboratory Data (last 24 hrs) 09/07/23 09/07/23 09/07/23 00:05 00:05 00:05 WBC 33.70 H Hgb 16.4 Hct 50.6 H Plt Count 497 H PT 12.6 H INR 1.15 APTT 27.7 Sodium 138 Potassium 2.9 L BUN 26 H Creatinine 1.63 H Glucose 95 Total Bilirubin 0.8 AST 35 ALT 21 Alkaline Phosphatase 97 Assessment and Plan - Plan Aspiration pneumonia: Imaging findings are concerning. He has leukocytosis of 33 K. Start metronidazole and Rocephin for management. Will monitor cultures for adjustment to therapy. AMS: Deemed due to drug abuse use. He has a UDS positive for benzo and THC. Will continue routine care with sedation and wean him off as tolerated. CT of the head showed no acute abnormality. Drug abuse: UDS positive for THC and benzo. Will manage once is medically cleared. ADWOA: Elevated creatinine 1.6 noted today. We will continue normal saline infusion for management. Hypokalemia: Potassium is low at 2.9. Will replete and monitor. Prophylaxis: Renally dosed Lovenox for DVT prophylaxis CODE STATUS: Full code. Disposition: We will treat his altered mentation, aspiration pneumonia and sepsis/drug abuse and discharge when she is clinically stable. - Advance Directives Does patient have a Living Will: No Does patient have a Durable POA for Healthcare: No
[2023-09-07] MEDS ORDERED: THIAMINE 200 MG/2 ML INJ ONE ×2 (04:56→12:26)
[2023-09-07] MEDS ORDERED: NA CHLORIDE 0.9% 1,000 ML ONE (06:18)
[2023-09-07] MEDS: NA CHLORIDE 0.9% 1,000 ML IV SCH (06:19)
[2023-09-07 08:05] LABS: Hematocrit 45.4 % (39.6-49.0); Lymphocytes % 2.7 % (15.3-44.8); MCV 98.4 fL (80-100); MPV 7.6 fL (7.6-11.3); Platelets 412 thou/uL (152-406); RBC Red Blood Cell Count 4.62 M/uL (4.33-5.43)
[2023-09-07 08:23] LABS: Albumin 2.2 g/dL (3.4-5.0); Bilirubin Total 1.5 mg/dL (0.2-1.0); Magnesium 1.9 mg/dL (1.6-2.4); Phosphorus 3.6 mg/dL (2.5-4.9); Potassium 4.1 mEq/L (3.5-5.1); Protein, Total 6.5 g/dL (6.4-8.2)
[2023-09-07] MEDS: ENOXAPARIN 40 MG/0.4 ML SQ SCH (08:38)
[2023-09-07] MEDS: propofoL 1,000 MG/100 ML VIAL IV SCH (08:38)
[2023-09-07] MEDS: METHYLPREDNISOLONE 40 MG INJ IV SCH (08:38)
[2023-09-07] MEDS: CEFTRIAXONE 1,000 MG in NA CHLORIDE 0.9% 50 ML IVPB SCH (08:38)
[2023-09-07] MEDS: METRONIDAZOLE 500mg IVPB 500 MG/100 ML BAG IV SCH (08:38)
[2023-09-07 08:57] LABS: Blood Morphology Comment NOT SEEN (NOT SEEN); Platelet Estimate ADEQ
--- NOTE | 2023-09-07 10:45 | RAD REPORT ---
EXAM DESCRIPTION: CT - Head C Spine Cap Kenia Benjamin - 09/07/2023 6:35 am CLINICAL HISTORY: Unresponsive COMPARISON: 04/29/2023 TECHNIQUE: Axial CT of the head obtained from the skull apex to the skull base without contrast. Axi al CT images of the cervical spine obtained without contrast. CT of the chest, abdomen and pelvis per formed following IV administration of iodinated contrast This exam was performed according to our [facility] dose-optimization program, which includes automated exposure control, adjustment of the mA and/or kV according to patient size and/or use of iterative reconstruction technique. FINDINGS: Head CT: No acute intracranial hemorrhage identified. No mass, mass effect, shift of the midline, abnormal ext ra-axial fluid collection or CT evidence of acute ischemic change identified. The ventricular system and sulcal spaces are mildly enlarged compatible with mild cerebral atrophy. Scattered areas of hyp odensity throughout the supratentorial white matter are nonspecific and may be related to chronic sma ll vessel ischemic change. Right temporoparietal encephalomalacia compatible with remote infarction. Opacities in the paranasal sinuses. Mastoid air cells are well aerated. No skull fracture identified. Visualized orbits and globes are unremarkable. Atherosclerotic calcification of the intracranial i nternal carotid arteries. Stable remote facial bone fractures. Multiple dental caries. Cervical CT : Alignment of the cervical spine is maintained without evidence of subluxation. The atlantoaxial, at lantodental, and occipitoatlantal intervals are preserved. No fracture identified. Vertebral body h eight preserved. Prevertebral soft tissues are unremarkable. [id number] multilevel loss of intervertebral disc height with endplate spondylosis, facet arthr opathy, and uncovertebral spurring. Posterior disc osteophyte complex at multiple levels mildly encro ach upon the anterior spinal canal. Mild neural foraminal narrowing. Visualized skull base is intact. No cervical lymphadenopathy. Chest: Thyroid: No abnormalities of the visualized thyroid. Great Vessels: Great vessels have normal anatomic configuration. Thoracic Aorta: No abnormalities of the thoracic aorta identified. Pulmonary arteries: No filling defects identified. Heart: No cardiomegaly, significant pericardial effusion, or coronary artery atherosclerosis Lymph Nodes: No enlarged mediastinal lymph nodes identified. Esophagus: No abnormalities of the esophagus identified Other: No additional findings. Lungs: Collapse of the left lower lobe with mildly decreased density. Patchy left upper lung airspace consolidation with air bronchograms. 4 mm solid pulmonary nodule in the right middle lobe. Minimal p atchy opacities in the right lower lobe. Pleura: No pleural effusion or pneumothorax. Trachea/Airways: Endotracheal tube terminating above the cortes. Filling defect in the left lower lob e bronchi. Abdomen: Liver: The liver has normal size. No intrahepatic mass or biliary dilatation. Focal fatty infiltratio n along the falciform ligament. Gallbladder: No calcified gallstones. Spleen, Pancreas, and Adrenal Glands: 2.2 cm left adrenal nodule with average Hounsfield units of 7 7. Right adrenal gland, spleen, and pancreas are unremarkable. Kidneys: The kidneys have normal size and contour without evidence of solid mass or hydronephrosis. Small bilateral renal cysts. No follow-up imaging for the structures recommended. Vasculature: Aortoiliac atherosclerosis. IVC is unremarkable. The portal vein is patent. The proxim al visceral and renal arteries are patent. Stomach: NG tube with tip in the stomach. Other: No free intraperitoneal air. No free fluid or lymphadenopathy. Pelvis: Bladder: Mild wall thickening of the urinary bladder. Phelan catheter in place. Bowel: No dilated loops of large or small bowel. Scattered diverticula of the colon. Mild long segm ent wall thickening of the transverse and descending colon. Appendix: Normal appendix. Pelvis: Enlarged prostate. Bones: Moderate to severe multilevel loss of intervertebral disc height with endplate spondylosis and facet arthropathy. Posterior discussed by complex in the lumbar spine mildly encroach on the anterio r spinal canal. Chronic appearing compression deformity of the T10 vertebral body without CT evidence of acuity. IMPRESSION: 1. No acute intracranial abnormality by CT criteria. 2. No acute fracture or subluxation of the cervical spine. 3. Consolidation of the left lower lobe with volume loss. Filling defect in the left lower lobe bro nchi. These findings could be seen with aspiration/pneumonia. Other causes of endobronchial obstructi on remain considerations. Continued follow-up recommended. 4. Patchy left upper lung airspace consolidation with air bronchograms. These findings could be see n with pneumonia. 5. Mild long segment wall thickening of the transverse and descending colon. These findings could b e seen with nonspecific colitis. 6. Diverticulosis without evidence of acute diverticulitis. 7. Enlarged prostate. 8. Mild wall thickening of the urinary bladder. This could be seen with cystitis or chronic bladder outlet obstruction. 9. 2.2 cm left adrenal mass, probable benign adenoma. Recommend adrenal washout CT or chemical shif t MRI. JACR 2017 Mar; 14(8):1038-44, JCAT 2016 Sep-Oct; 40(2):194-200, Urol J spring; 3(2):71-4. 10. 4 mm right solid pulmonary nodule. Per Fleischner Society Guidelines, no routine follow-up imag ing is recommended. These guidelines do not apply to immunocompromised patients and patients with cancer. Follow up in pa tients with significant comorbidities as clinically warranted. For lung cancer screening, adhere to L ravi-RADS guidelines. Reference: Radiology. 2017; 284(1):228-43. Electronically signed by: Carlos Austin DO 09/07/2023 02:41 AM AN/SYQ 13 NAV/C2 OPERATOR M Due to temporary technical issues with the PACS/Fluency reporting system, reports are being signed by the in house radiologist without review as a courtesy to ensure prompt reporting. The interpreting r adiologist is fully responsible for the content of the report.
--- NOTE | 2023-09-07 10:53 | RAD REPORT ---
EXAM DESCRIPTION: RAD - Chest Single View - 09/07/2023 1:26 am CLINICAL HISTORY: After intubation and line COMPARISON: None. FINDINGS: Single frontal view of the chest. Tubes and lines: Endotracheal tube with tip 4 cm above the cortes. Right IJ central venous catheter t ip in the SVC. NG tube with tip curled in the stomach. Cardiomediastinal silhouette: Heart is not enlarged. Lungs: Mild perihilar opacities. Elevation left hemidiaphragm. No pneumothorax. Bones: Degenerative change of the shoulders. Upper abdomen: No additional findings. IMPRESSION: 1. Endotracheal tube and right IJ central venous catheter in appropriate position. 2. Mild bilateral perihilar opacities. Electronically signed by: Carlos Austin DO 09/07/2023 01:39 AM PAEDIATRIC THORACIC PHYSICIAN M Due to temporary technical issues with the PACS/Fluency reporting system, reports are being signed by the in house radiologist without review as a courtesy to ensure prompt reporting. The interpreting r adiologist is fully responsible for the content of the report.
[2023-09-07] MEDS: DEXMEDETOMIDINE HCL 1,000 MCG in NA CHLORIDE 0.9% 490 ML IV SCH (12:04)
--- NOTE | 2023-09-07 12:08 | P.CNS ---
Date of Consult: 09/07/23 Reason for Consult: Respiratory failure patient on a ventilator Chief Complaint: AMS, aspiration pneumonia, drug abuse. History of Present Illness: Patient is 58 years of age was found unresponsive was intubated by EMS Ervin Coma Scale of 3 had a stroke before history of drug and alcohol abuse found unresponsive patient was given left tibial intraosseous IV was then intubated currently stable blood pressure is a little low unresponsive on propofol poor h ygiene/history of CVA with right-sided weakness Allergies No Known Allergies Allergy (Verified 03/15/18 13:42) Home Medications: Metoprolol Succinate 50 mg PO [id number] 03/15/18 - Social History Smoking Status: Current every day smoker Alcohol use: Yes CD- Drugs: Yes Place of Residence: Home Review of Systems is unable to be obtained Physical Examination Temp Pulse Resp BP Pulse Ox 97.2 F 101 H 18 89/55 L 100 09/07/23 08:00 09/07/23 11:00 09/07/23 11:00 09/07/23 11:00 09/07/23 11:00 General: Unresponsive Respiratory: Diminished Gastrointestinal: Normal bowel sounds, Soft and benign Laboratory Data (last 24 hrs) 09/07/23 09/07/23 09/07/23 00:05 00:05 00:05 WBC 33.70 H Hgb 16.4 Hct 50.6 H Plt Count 497 H PT 12.6 H INR 1.15 APTT 27.7 Sodium 138 Potassium 2.9 L BUN 26 H Creatinine 1.63 H Glucose 95 Total Bilirubin 0.8 AST 35 ALT 21 Alkaline Phosphatase 97 - Problems (1) Septic shock Current Visit: Yes Status: Acute Plan: Patient is 58 years of age was found unresponsive history of drug and alcohol abuse urine tested positive admitted with elevated white count acute renal failure left upper lobe infiltrate white count is significantly elevated patient is also currently hypotensive 100% sat vent protocol initiated x-rays reviewed IV fluid boluses changed to dexmedetomidine IV sedation as needed
[2023-09-07] MEDS ORDERED: NA CHLORIDE 0.9% 250 ML IV PRN (12:09)
[2023-09-07] MEDS ORDERED: PIPERACIL/TAZO 4.5 GM VIAL IV ONE ×2 (12:25→19:14)
[2023-09-07] MEDS: VANCOMYCIN 1.75 GM in NA CHLORIDE 0.9% 500 ML IVPB ONE (12:29)
[2023-09-07] MEDS: PIPER TAZO 4.5 GM in NA CHLORIDE 0.9% 100 ML IV SCH (12:29)
[2023-09-07] MEDS ORDERED: THIAMINE 200 MG/2 ML INJ IVP SCH (12:30)
[2023-09-07] MEDS: NA CHLORIDE 0.9% 500 ML IV ONE (12:31)
[2023-09-07] MEDS ORDERED: NOREPINEPHRINE BITARTRATE/D5W 4 MG/250 ML BAG IV ONE (14:36)
[2023-09-07] MEDS ORDERED: HYDROCORTISONE SUC 100 MG INJ ONE (14:36)
[2023-09-07] MEDS: HYDROCORTISONE SUC 100 MG INJ IV ONE (14:39)
[2023-09-07] MEDS: NOREPINEPHRINE BITARTRATE/D5W 4 MG/250 ML BAG IV SCH (14:39)
[2023-09-07] MEDS: THIAMINE 200 MG/2 ML INJ IVP SCH (17:43)
[2023-09-07] MEDS: FAMOTIDINE 20 MG/2 ML VIAL IV SCH (20:42)
[2023-09-08] MEDS: LORazepam 2 MG/ML VIAL IV PRN (00:15)
[2023-09-08] MEDS ORDERED: NA CHLORIDE 0.9% 100 ML ONE ×4 (03:21→20:02)
[2023-09-08] MEDS ORDERED: PIPERACIL/TAZO 4.5 GM VIAL IV ONE ×3 (03:21→20:01)
[2023-09-08 05:27] LABS: Absolute Lymphocytes (CBC) 0.6 K/uL (0.7-4.9); Hematocrit 37.1 % (39.6-49.0); MCV 95.3 fL (80-100); MPV 7.8 fL (7.6-11.3); Platelets 345 thou/uL (152-406); RBC Red Blood Cell Count 3.89 M/uL (4.33-5.43)
[2023-09-08] MEDS ORDERED: NA CHLORIDE 0.9% 1,000 ML ONE (05:38)
[2023-09-08] MEDS: KCL 20 MEQ/100 mL IVPB 20 MEQ/100 ML BAG IV SCH ×2 (06:35→14:16)
[2023-09-08] MEDS ORDERED: POTASSIUM CL 40 MEQ in NA CHLORIDE 0.9% 500 ML IV SCH (07:00)
--- NOTE | 2023-09-08 07:19 | RAD REPORT ---
EXAM DESCRIPTION: RAD - Chest Single View - 09/08/2023 4:32 am CLINICAL HISTORY: Pneumonia COMPARISON: Chest Single View dated 09/07/2023; Chest Single View dated 04/29/2023; Chest Single View d ated 12/18/2021; Head C Spine Cap W Con dated 09/07/2023 FINDINGS: Lines: ET tube at the aortic arch in satisfactory position. Right IJ approach central line with tip overlying the SVC in satisfactory position. Enteric tube below the diaphragm within the sto mach in satisfactory position Lungs: Increased lung volumes with mild improved aeration in the medial left lung base. There is stil l patchy irregular opacities throughout the left lung. Pleural: No significant pleural effusions or pneumothorax. Cardiac: Similar cardiomegaly. Mediastinum: Within normal limits. Bones: No acute fractures. Other: None IMPRESSION: Mild improved lung volumes and possibly some clearing of airspace disease in the left raymundo ng base however there are still significant residual left lung opacities remaining. Stable support ap paratus.
[2023-09-08] MEDS ORDERED: LORazepam 2 MG/ML VIAL ONE ×4 (07:26→13:45)
[2023-09-08] MEDS ORDERED: THIAMINE 200 MG/2 ML INJ ONE ×2 (08:25→20:01)
[2023-09-08] MEDS: D5W 1,000 ML IV SCH (08:34)
[2023-09-08] MEDS ORDERED: MIDAZOLAM HCL 2 MG/2 ML INJ ONE ×2 (10:09→14:29)
[2023-09-08] MEDS: MIDAZOLAM HCL 2 MG/2 ML INJ IV PRN (10:12)
[2023-09-08] MEDS ORDERED: FENTANYL CITR 100 MCG/2 ML ONE ×2 (10:33→15:11)
[2023-09-08] MEDS: FENTANYL CITR 100 MCG/2 ML IV PRN (10:35)
[2023-09-08] MEDS: VANCOMYCIN 1.5 GM in NA CHLORIDE 0.9% 500 ML IVPB SCH (12:14)
[2023-09-08] MEDS ORDERED: HYDROMORPHONE HCL 2 MG/ML inj ONE ×2 (12:47→18:41)
--- NOTE | 2023-09-08 12:48 | P.PN ---
Subjective Date of Service: 09/08/23 Chief Complaint: AMS, aspiration pneumonia, drug abuse. Condition is stable he continues to remain very agitated becoming bradycardic with Precedex drip dynamically stable oxygenation satisfactory requiring sedation Review of Systems is unable to be obtained Physical Examination - Vital Signs Temperature: 97.7 F Blood Pressure: 124/85 Pulse: 40 Respirations: 16 Pulse Ox (%): 100 - Physical Exam General: Unresponsive Neck: Supple Respiratory: Clear to auscultation bilaterally Cardiovascular: No edema, Regular rate/rhythm Assessment And Plan - Current Problems (Diagnosis) (1) Septic shock Current Visit: Yes Status: Acute Plan: Patient's septic shock is improving renal function is improving blood pressure stable patient is on pressure control ventilation FiO2 of 30% he is also hyponatremic changed to D5 water white count has declined to 21,000 cultures are negative so far chest x-ray is clear vital signs stable try Dilaudid patient is intolerant to Precedex causing bradycardia still agitated it is clear appears to have a left lower lobe pneumonia DC vancomycin blood cultures are negative continue with Zosyn for now will wean off the ventilator once he is more awake tube feedings tomorrow if unable to wean off the ventilator DC steroid
[2023-09-08] MEDS: HYDROMORPHONE HCL 2 MG/ML inj IV PRN (12:49)
[2023-09-08] MEDS: NA CHLORIDE 0.9% 500 ML IV ONE (13:25)
[2023-09-08] MEDS ORDERED: KCL 20 MEQ/100 mL IVPB 200 ML IV ONE (14:15)
[2023-09-08] MEDS ORDERED: HALOPERIDOL LACT 5 MG/ML INJ ONE (14:48)
[2023-09-08] MEDS: HALOPERIDOL LACT 5 MG/ML INJ IV PRN (15:00)
[2023-09-08] MEDS ORDERED: FENTANYL CITR 100 MCG/2 ML IV PRN (15:32)
[2023-09-08] MEDS: propofoL 1,000 MG/100 ML VIAL IV SCH (15:39)
[2023-09-08] MEDS ORDERED: propofoL 1,000 MG/100 ML VIAL IV SCH (16:00)
[2023-09-08] MEDS: ALBUMIN HUMAN 25% 100 ML IV ONE (16:07)
[2023-09-08] MEDS ORDERED: D5W 1,000 ML IV ONE (17:53)
--- NOTE | 2023-09-08 19:57 | CON ---
Date of Consultation: 09/08/2023 Reason For Consultation: Bradycardia. History Of Present Illness: This is a 58-year-old male with chronic alcoholism, found with altered m ental status and found to have aspiration pneumonia, intubated for airway protection and brought into the emergency room and was admitted to ICU. He was on Precedex for sedation and he became bradycard ic and also patient apparently takes metoprolol at home. Unable to get a history from him as he is o n the ventilator, sedated and intubated. Past Medical History: Unknown. Medications: Metoprolol was reported. Allergies: NO KNOWN DRUG ALLERGIES. Family History: No premature coronary artery disease or cancer. Social History: Apparently, he drinks and has some drug use as well. I am not sure what kind. Review of Systems: All systems reviewed, they were negative except for mentioned above in the HPI. Physical Examination: Vital Signs: Reviewed. Head and Neck: Pupils are equal, reactive to light. No JVD. No cervical lymphadenopathy. Neck: Supple. Thyroid is not enlarged. Lungs: Clear to auscultation bilaterally. No rhonchi, rales, or crackles. No accessory muscle use. Heart: Regular rate and rhythm. No extra sounds. Abdomen: Soft, nontender. Bowel sounds positive. No organomegaly. No masses or hernia. No rigidi ty or rebound. Extremities: No clubbing, cyanosis. Intact pulses. Skin: No rashes. Neuro: He is sedated on the ventilator. Lymph nodes: No cervical or axillary lymphadenopathy. Investigations: BUN 24; creatinine 1.4 and hemoglobin is 12.7. Assessment/recommendation: 1.Bradycardia. It is sinus bradycardia, no heart block. Could be related to sedation, which was di scontinued and now his heart rate is within normal range and could be also due to metoprolol. We chad l re-evaluate the patient once he is awake, but at this point, I recommend to obtain an echo and furt her plan accordingly. 2.Respiratory failure with aspiration pneumonia, on the ventilator and antibiotics. 3.Altered mental status and unresponsiveness, probably related to alcohol and we will further evalua te this patient once he is extubated. SR/MODL Voice ID: [id number] Report ID: [id number]
[2023-09-08] MEDS ORDERED: FAMOTIDINE 20 MG/2 ML VIAL IV ONE (20:02)
--- NOTE | 2023-09-08 20:45 | P.PN ---
Subjective Date of Service: 09/08/23 Patient is a 58-year-old gentleman came to the hospital with altered mental status. Will concern the patient had substance abuse history. I talked to his ex- who is his medical power of chemistry quality control technician her son, and she stated that she had a heart attack and an intracranial hematoma that had to be evacuated a month or 2 ago. He was discharged home, and he has been really slow to regain his normal day-to-day living. She states he really cares about his presentation. He grooms himself and he gets around pretty well day-to-day. He is fully functioning and does not really have any confusion or altered mentation. Patient has been very agitated while in bed. Nurses have apparently tried to use sedation and he has had bradyarrhythmias. Patient is in restraints and has been on assist control while on the mechanical ventilator. We were able to place him on spontaneous ventilation and we kept him on a pressure support of 8 and a PEEP of 5. He maintained his oxygen saturations at 100%. I anticipate that we should be able to wean him off the ventilator as long as his mentation is appropriate. He is no longer on vasopressor and his cardiac status is fairly stable. He does have a diminished urine output at this time. Will continue monitoring renal function closely. Review of Systems 10-point ROS is otherwise unremarkable Physical Examination - Vital Signs Temperature: 96.5 F Blood Pressure: 119/84 Pulse: 43 Respirations: 16 Pulse Ox (%): 100 - Physical Exam General: Other (Intubated and sedated) HEENT: Atraumatic, PERRLA, Other (ET tube in place), EOMI Neck: Supple, JVD not distended Respiratory: Diminished Cardiovascular: Regular rate/rhythm, Normal S1 S2, Systolic murmur Gastrointestinal: Normal bowel sounds, Soft and benign, Non-distended, No tenderness Musculoskeletal: No clubbing, No swelling, No tenderness Integumentary: No rashes Neurological: Sensation intact, Cranial nerves 3-12 intact - Studies Medications List Reviewed: Yes Assessment & Plan - Problems (Diagnosis) (1) Altered mental status Current Visit: Yes Status: Acute (2) Aspiration pneumonia Current Visit: Yes Status: Acute (3) History of coronary artery disease Current Visit: Yes Status: Acute (4) History of intracranial injury Current Visit: Yes Status: Acute (5) ADWOA (acute kidney injury) Current Visit: Yes Status: Acute - Plan Plan: 1. Neurologic: Patient mentation is still altered. Recent evacuation of intracranial hematoma. Repeat CT of the brain in the morning. Check ammonia level. 2. Cardio vascular: Patient remains bradycardic at times. Most likely related to sedation. Continue monitoring hemodynamics. Patient was weaned off of Levophed 3. Pulmonary: Patient remains on mechanical ventilation; did well for an hour on spontaneous ventilation mode. His sats at 100% and heart rate and blood pressure were stable. His mentation remains altered 4. GI: Continue with feeds with tube feeds in the morning. Patient will need speech therapy evaluation. Continue with PPI 5. Nephrology: Patient with diminished urine output. ADWOA from most likely ATN. Monitor renal function and get her renal ultrasound 6. Infectious: Concern for aspiration pneumonia. Patient was in shock. Continue with vasopressors for hemodynamic support 7. Endocrine: Will check thyroid studies for bradycardia Discharge Plan: Home Plan to discharge in: Greater than 2 days - Advance Directives Does patient have a Living Will: No Does patient have a Durable POA for Healthcare: No Critical Care: Yes Time Spent Managing PTS Care (In Minutes): 45
[2023-09-08] MEDS ORDERED: propofoL 1,000 MG/100 ML VIAL IV ONE (23:32)
[2023-09-09] MEDS ORDERED: KCL 20 MEQ/100 mL IVPB 200 ML IV ONE (01:52)
[2023-09-09] MEDS: KCL 20 MEQ/100 mL IVPB 20 MEQ/100 ML BAG IV SCH (01:56)
[2023-09-09] MEDS ORDERED: HYDROMORPHONE HCL 2 MG/ML inj ONE (03:23)
[2023-09-09 04:36] LABS: Absolute Lymphocytes (CBC) 0.8 K/uL (0.7-4.9); Hematocrit 34.2 % (39.6-49.0); Lymphocytes % 4.6 % (15.3-44.8); MCV 96.1 fL (80-100); MPV 7.7 fL (7.6-11.3); Platelets 266 thou/uL (152-406); RBC Red Blood Cell Count 3.56 M/uL (4.33-5.43)
[2023-09-09 05:16] LABS: Albumin 2.1 g/dL (3.4-5.0); Bilirubin Total 0.7 mg/dL (0.2-1.0); Magnesium 1.7 mg/dL (1.6-2.4); Potassium 3.2 mEq/L (3.5-5.1); Troponin High Sensitivity 19.8 pg/mL (<58.9)
[2023-09-09 05:18] LABS: Phosphorus 1.3 mg/dL (2.5-4.9)
[2023-09-09] MEDS: POTASSIUM PHOS IN 0.9 % NACL 15 MMOL/250 ML BAG IV ONE ×4 (05:22→22:55)
[2023-09-09] MEDS ORDERED: D5W 1,000 ML IV ONE ×2 (05:29→18:28)
[2023-09-09] MEDS ORDERED: PIPERACIL/TAZO 4.5 GM VIAL IV ONE ×3 (05:29→19:35)
[2023-09-09] MEDS ORDERED: NA CHLORIDE 0.9% 100 ML ONE ×3 (05:29→19:35)
[2023-09-09 05:34] LABS: Blood Gas Oxyhemoglobin 93.6 % (94-97)
--- NOTE | 2023-09-09 08:10 | RAD REPORT ---
[facility] 4[facility] am CLINICAL HISTORY: pneumonia COMPARISON: Chest Single View dated 09/08/2023; Chest Single View dated 09/07/2023; Chest Single View da tana 04/29/2023; Chest Single View dated 12/18/2021 TECHNIQUE: Portable AP view of the chest. FINDINGS: Endotracheal tube, enteric tube, and right IJ CVC are unchanged in position. Elevation of the left hemidiaphragm. Patchy airspace opacities in the left upper to mid lung are stable. Mild righ t basilar patchy airspace opacification is progressive since the prior exam. No pneumothorax or siza ble effusion. The cardiomediastinal contours are unremarkable. IMPRESSION: Stable findings apart from mildly progressive patchy right basilar airspace opacificatio n.
[2023-09-09] MEDS ORDERED: THIAMINE 200 MG/2 ML INJ ONE ×2 (08:19→20:54)
[2023-09-09] MEDS: D5W 1,000 ML IV SCH (08:23)
--- NOTE | 2023-09-09 08:52 | RAD REPORT ---
EXAM DESCRIPTION: CT - Head Brain Wo Cont - 09/09/2023 3:55 am CLINICAL HISTORY: ams COMPARISON: Head angio dated 04/29/2023; Ct Stroke Brain Wo Cont dated 04/29/2023; Head C Spine Cap W Con dated 09/07/2023 TECHNIQUE: Noncontrast head CT images were obtained without IV contrast. Multiplanar reformats were generated and reviewed. All CT scans are performed using dose optimization technique as appropriate and may include automated exposure control or mA/KV adjustment according to patient size. FINDINGS: No intracranial hemorrhage, mass, or edema. Midline structures are unremarkable. Stable ventricular caliber with some ex vacuo dilation of the right lateral ventricle particularly at the trigone. Right lateral temporal and parietal areas of encephalomalacia, stable. Baires-white matter differentiat ion is otherwise preserved, without evidence of acute infarct. No abnormal extra-axial fluid collecti ons. Mastoid air cells and visualized portions of the paranasal sinuses are clear. No acute bony findings. IMPRESSION: No evidence of an acute intracranial process. Stable areas of encephalomalacia in the r ight lateral temporal and parietal regions, suggestive of sequelae of remote MCA territory ischemia.
--- NOTE | 2023-09-09 08:56 | P.PN ---
Subjective Date of Service: 09/09/23 Chief Complaint: AMS, aspiration pneumonia, drug abuse. Respiratory failure continues to remain agitated more responsive today patient is on SIMV moving all his extremities Review of Systems is unable to be obtained Physical Examination - Vital Signs Temperature: 98.1 F Blood Pressure: 138/113 Pulse: 62 Respirations: 14 Pulse Ox (%): 100 - Physical Exam General: Unresponsive HEENT: Atraumatic Neck: Supple Respiratory: Clear to auscultation bilaterally Cardiovascular: No edema, Normal S1 S2 - Studies Medications List Reviewed: Yes Assessment And Plan - Current Problems (Diagnosis) (1) Respiratory failure Current Visit: Yes Status: Acute Plan: Patient condition is stable talk has resolved continues to remain agitated delirious patient has a respiratory alkalosis Vent changed to SIMV rate decreased to 10 is only requiring FiO2 of 30% chest x-ray no progression clear hyponatremia resolved start tube feeds patient tolerated propofol intolerant to Precedex because of bradycardia reduce rate of IV fluids white count is declined to 17,000 no evidence of a stroke on the CT scan no significant changes on chest x-ray Qualifiers: Chronicity: acute
[2023-09-09 09:16] LABS: Blood Morphology Comment NOT SEEN (NOT SEEN); Platelet Estimate ADEQ
[2023-09-09] MEDS ORDERED: HYDRALAZINE HCL 20 MG/ML VIAL ONE (09:54)
[2023-09-09] MEDS: HYDRALAZINE HCL 20 MG/ML VIAL IV ONE (09:55)
[2023-09-09] MEDS ORDERED: VITAL AF 1,000 ML BOT RTH SCH (10:00)
[2023-09-09] MEDS: NICARDIPINE HCL 25 MG in NA CHLORIDE 0.9% 240 ML IV SCH (10:08)
[2023-09-09 13:10] LABS: Albumin 2.6 g/dL (3.4-5.0); Bilirubin Total 1.1 mg/dL (0.2-1.0); Magnesium 1.4 mg/dL (1.6-2.4); Potassium 2.9 mEq/L (3.5-5.1); Protein, Total 7.2 g/dL (6.4-8.2); Uric Acid 4.1 mg/dL (3.5-7.2)
[2023-09-09 13:11] LABS: Phosphorus 1.3 mg/dL (2.5-4.9)
[2023-09-09 13:11] LABS: Specific Gravity 1.006 (1.005-1.030); Urine Bacteria None Seen /HPF (<20); Urine Bilirubin NEGATIVE (Negative); Urine Blood Negative (Negative); Urine Clarity Clear (Clear); Urine Color Colorless (Yellow); Urine Glucose TRACE (Negative); Urine Mucus Slight /HPF (None Seen); Urine Protein NEGATIVE (Negative); Urine RBC <5 /HPF (None Seen); Urine Urobilinogen Normal (Normal)
[2023-09-09] MEDS ORDERED: NICOTINE 21 MG/PAT TD ONE (13:21)
[2023-09-09 13:26] LABS: UR PROTEIN 8.4 mg/dL (<11.9)
[2023-09-09] MEDS: NICOTINE 21 MG/PAT TD SCH (13:26)
[2023-09-09 13:27] LABS: UR CREAT < 18.0 mg/dL (20-370)
[2023-09-09] MEDS ORDERED: LORazepam 2 MG/ML VIAL ONE (14:03)
[2023-09-09] MEDS: LORazepam 2 MG/ML VIAL IV ONE (14:07)
[2023-09-09] MEDS: POTASSIUM 25 MEQ EFFERV TAB PO ONE ×2 (14:40→22:54)
--- NOTE | 2023-09-09 14:45 | RAD REPORT ---
EXAM DESCRIPTION: US - Renal Ultrasound-Complete - 09/09/2023 2:37 pm CLINICAL HISTORY: polyuria Flank pain COMPARISON: No comparisons FINDINGS: Both kidneys are normal in size, shape and echotexture. The right kidney measures 11.2 x 5.8 x 5.3 cm. No hydronephrosis, focal mass or perinephric fluid. The left kidney measures 10.8 x 5.2 x 4.6 cm. No hydronephrosis, focal mass or perinephric fluid. The urinary bladder is incompletely distended without gross abnormality seen. IMPRESSION: Unremarkable renal sonogram.
--- NOTE | 2023-09-09 14:54 | ECHO ---
HEIGHT: 5 ft 9 in WEIGHT: 197 lb 9.6 oz DATE OF STUDY: 09/09/[address]: Edilson Gold 2-DIMENSIONAL: YES M.MODE: YES DOPPLER: YES COLOR FLOW: YES TDS: YES PORTABLE: DEFINITY: BUBBLE STUDY: DIAGNOSIS: BRADYCARDIA CARDIAC HISTORY: CATHERIZATION: SURGERY: PROSTHETIC VALVE: PACEMAKER: MEASUREMENTS (cm) DIASTOLIC (NORMALS) SYSTOLIC (NORMALS) IVSd 1.1 (0.6-1.2) LA Diam 3.2 (1.9-4.0) LVEF 75% LVIDd 5.0 (3.5-5.7) LVIDs 2.8 (2.0-3.5) %FS 44% LVPWd 1.1 (0.6-1.2) Ao Diam 3.1 (2.0-3.7) 2 DIMENSIONAL ASSESSMENT: RIGHT ATRIUM: NORMAL LEFT ATRIUM: NORMAL RIGHT VENTRICLE: NORMAL LEFT VENTRICLE: NORMAL TRICUSPID VALVE: NORMAL MITRAL VALVE: NORMAL PULMONIC VALVE: NORMAL AORTIC VALVE: NORMAL PERICARDIAL EFFUSION: NONE AORTIC ROOT: NORMAL LEFT VENTRICULAR WALL MOTION: NORMAL WALL MOTION, NORMAL LEFT VENTRICULAR SYSTOLIC FUNCTION DOPPLER/COLOR FLOW: NORMAL COMMENTS: 1. HYPERDYNAMIC LEFT VENTRICLE, NORMAL SYSTOLIC FUNCTION, EJECTION FRACTION 65%, NORMAL WALL MOTION, NORMAL DIASTOLIC FUNCTION 2. INSUFFICIENT TRICUSPID REGURGITATION TO ESTIMATE RIGHT VENTRICULAR SYSTOLIC PRESSURE TECHNOLOGIST: PARK AMIN
[2023-09-09] MEDS: Magnesium Sulfate 2gm IVPB 2 G/50 ML BAG IV ONE (19:10)
[2023-09-09 21:15] LABS: Phosphorus 2.3 mg/dL (2.5-4.9); Potassium 2.7 mEq/L (3.5-5.1)
--- NOTE | 2023-09-10 02:15 | CON ---
Date of Consultation: 09/09/2023 Chief Complaint: Acute kidney injury, electrolyte abnormalities, hypokalemia, hypophosphatemia. History Of Present Illness: The patient was admitted to the hospital because of aspiration pneumonia , altered mental status. He has history of drug abuse. He has history of hypertension and was takin g metoprolol at home 50 mg daily. Review of system is unobtainable, patient is somewhat confused and anxious. He was found to [place] [address]. He required pressors for blood pressure support. Upon admission, he was found to have severe hypokalemia and he is recei ving treatment for hypokalemia and severe hypophosphatemia. The patient had altered mental status, w hich was deemed due to drug abuse and drug screen was positive for benzos and THC. The patient is tr eated with antibiotics for aspiration pneumonia and sepsis. White count remained elevated. Nephrolo gy consultation is requested for acute kidney injury. Patient has nonoliguric urine output and renal ultrasound did not show hydronephrosis. The patient was consulted by Pulmonary service for pneumoni a. He is 58-year-old man, who was found unresponsive, was intubated by EMS, and he has history of __ . CT scan of the head showed encephalomalacia. He has history of drug and alcohol abuse and he was found unresponsive. He was given left tibial intraosseous IV and intubated in the field. Bl ood pressure stabilized with IV fluids, although he required pressors as well. He has history of poo r hygiene and history of CVA with right-sided weakness. Review of Systems: Unobtainable, patient remains confused. Physical Examination: General: The patient is awake, although he is confused and somewhat anxious. Eyes: Anicteric sclerae. EOMI. Ears, Nose, Mouth, Throat: Oral mucosa moist. Neck: Supple. Lungs: Rhonchi present. Crackles at bases present. Heart: S1, S2. No pericardial friction rub. Abdomen: Soft, benign, nontender. No rebound. No guarding. Extremities: No edema. Laboratory Data: WBC , hemoglobin 16.4, platelet count is 497. PT 12.6, INR 1.16. Sodium 138, potassium 2.9, BUN 26, creatinine 1.63, glucose 95, total bilirubin 0.8, AST 35, ALT 21. Impression And Plan: The patient is a 58-year-old man who was found unresponsive. He has history of drug and alcohol abuse. Urine test was checked for drug screen, he was found to have elevated white count and acute kidney injury, although is improving with IV fluids as well as treatment for ___. He will continue IV fluids. He has hypokalemia and he will receive potassium chloride as well as for hypophosphatemia, he received potassium phosphate. CK level was checked to rule out rhabdomyo lysis. CK level is not significantly elevated, does not correspond with rhabdomyolysis. The patient has multiple electrolytes abnormalities including hypokalemia and hypophosphatemia. The patient was found to have hypoalbuminemia and skpzk-aqldagz-puvdzgnmqy ratio is elevated, corresponds with a mod erately severe proteinuria. Urinalysis did not show hematuria and is negative for leukocyturia. Cul tures are pending and I recommend to continue antibiotic therapy for sepsis and septic shock due to a spiration pneumonia. Continue IV fluids for adequate hydration. The patient currently is on Zosyn f or broad spectrum coverage and blood cultures are pending. Renal function improved over last 24 hour s and today creatinine level is 1.21, BUN 18. There is no metabolic acidosis present on arrival to [facility]. BUN was 26 and creatinine level was 1.63. The patient on arrival to the hospital had a bicarbonate level of 18. Currently, bicarbonate level is ranging from 22-25. EB/MODL Voice ID: [id number] Report ID: [id number]
[2023-09-10] MEDS ORDERED: PIPERACIL/TAZO 4.5 GM VIAL IV ONE ×3 (02:30→20:28)
[2023-09-10] MEDS ORDERED: NA CHLORIDE 0.9% 100 ML ONE ×3 (02:31→20:28)
[2023-09-10 04:56] LABS: Absolute Lymphocytes (CBC) 1.4 K/uL (0.7-4.9); Hematocrit 38.3 % (39.6-49.0); Lymphocytes % 10.1 % (15.3-44.8); MCV 95.9 fL (80-100); MPV 7.9 fL (7.6-11.3); Platelets 255 thou/uL (152-406)
[2023-09-10 05:28] LABS: Phosphorus 3.6 mg/dL (2.5-4.9)
[2023-09-10 05:30] LABS: Potassium 3.5 mEq/L (3.5-5.1)
[2023-09-10] MEDS: KCL 20 MEQ/100 mL IVPB 20 MEQ/100 ML BAG IV SCH (06:33)
--- NOTE | 2023-09-10 07:09 | RAD REPORT ---
EXAM DESCRIPTION: RAD - Chest Single View - 09/10/2023 6:22 am CLINICAL HISTORY: Pneumonia COMPARISON: Chest Single View dated 09/09/2023; Chest Single View dated 09/08/2023; Chest Single View da tana 09/07/2023; Chest Single View dated 04/29/2023; Head C Spine Cap W Con dated 09/07/2023 FINDINGS: Lines: Right IJ approach central line with tip overlying the proximal SVC. Lungs: Left upper lobe consolidative airspace disease again identified. Improved lung volumes on the left compared with prior. Pleural: No significant pleural effusions or pneumothorax. Cardiac: The heart size is within normal limits. Mediastinum: Within normal limits. Bones: No acute fractures. Other: None IMPRESSION: Consolidative process in the left upper lobe is unchanged. Improved lung volumes compare d with 09/09/2023.
[2023-09-10] MEDS ORDERED: NICOTINE 21 MG/PAT TD ONE (07:48)
[2023-09-10] MEDS ORDERED: THIAMINE 200 MG/2 ML INJ ONE ×2 (07:48→20:28)
--- NOTE | 2023-09-10 10:50 | P.PN ---
Subjective Date of Service: 09/10/23 Chief Complaint: AMS, aspiration pneumonia, drug abuse. Patient is doing better he was extubated yesterday is currently agitated requiring Precedex drip oriented x 1 Review of Systems General: Weakness Respiratory: Shortness of Breath Physical Examination - Vital Signs Temperature: 96.8 F Blood Pressure: 137/100 Pulse: 66 Respirations: 14 Pulse Ox (%): 100 - Physical Exam General: Alert, Oriented x1 Neck: Supple Respiratory: Clear to auscultation bilaterally Cardiovascular: No edema, Regular rate/rhythm - Studies Medications List Reviewed: Yes Assessment And Plan - Current Problems (Diagnosis) (1) Pneumonia Current Visit: Yes Status: Acute Plan: Patient admitted with left lower lobe pneumonia is currently improving sputum culture shows 3+ gram-negative rods patient has had no further episodes of bradycardia continue with Zosyn for now chest x-ray is now clear Qualifiers: Pneumonia type: due to unspecified organism
[2023-09-10] MEDS: HYDRALAZINE HCL 20 MG/ML VIAL IV ONE (14:51)
[2023-09-10] MEDS: AMLODIPINE 5 MG TAB PO SCH (15:24)
--- NOTE | 2023-09-10 17:57 | PN ---
Date of Progress Note: 09/10/2023 Subjective: This is a 58-year-old man with past medical history of who presented to [facility] with altered mental status. Has a history of polysubstance abuse. The patient was hypotensive, required pressor support. Nephrology consulted for ADWOA with creatinine of 1.6. Subjective, today no overnight event. Phelan catheter removed. Monitored for urinary retention. Blood pressure elevated , we will start the patient on amlodipine. Objective: Vital Signs: Temperature 97.9, pulse rate 61, blood pressure 156/110. General: Awake and alert. Neck: Supple. No elevated JVD. Heart: Regular rate and rhythm. Normal S1 and S2. Chest: Clear to auscultation bilaterally. No rales or wheezes. Abdomen: Soft, nontender. No catheter. Extremities: No edema. Lab: Sodium 141, potassium 3.5, BUN 10, creatinine 0.9. White count 15.5, hemoglobin of 13, platele ts 255. Assessment And Plan: 1.Acute kidney injury, likely due to ischemic ATN. Creatinine down to 0.9. Continue to monitor. R enal dose medication. 2.Hypokalemia. Replace as needed. Encouraged to increase fluid intake. 3.Hypertension. The patient had shock, required pressor support on admission. Right now blood pres sure is elevated. We will start the patient on amlodipine. 4.Respiratory failure, extubated. Currently saturation 100%. 5.Hypophosphatemia due to poor oral intake. Replaced. Continue to monitor. Thank you for allowing me to participate in the patient's care. Total time I spent 55 minutes includ ing documentation, reviewing labs, and discussing with nursing staff. ROXI/HALEY Voice ID: [id number] Report ID: [id number]
[2023-09-10] MEDS: METOPROLOL TAR 25 MG TAB PO ONE (18:50)
[2023-09-10] MEDS: LOSARTAN POTASSIUM 50 MG TABLET PO SCH (20:38)
[2023-09-10] MEDS: chlordiazePOXIDE HCl 25 MG CAP PO SCH (20:38)
[2023-09-10] MEDS: QUETIAPINE 25 MG TAB PO SCH (21:22)
[2023-09-11] MEDS ORDERED: NA CHLORIDE 0.9% 100 ML ONE (04:13)
[2023-09-11] MEDS ORDERED: PIPERACIL/TAZO 4.5 GM VIAL IV ONE (04:13)
[2023-09-11 04:45] VITALS: BMI 26.4
[2023-09-11] MEDS: METOPROLOL TAR 25 MG TAB PO SCH (06:00)
[2023-09-11 06:33] LABS: Absolute Lymphocytes (CBC) 1.4 K/uL (0.7-4.9); Hematocrit 38.8 % (39.6-49.0); Lymphocytes % 12.6 % (15.3-44.8); MCV 95.5 fL (80-100); MPV 7.6 fL (7.6-11.3); Platelets 211 thou/uL (152-406); RBC Red Blood Cell Count 4.06 M/uL (4.33-5.43)
[2023-09-11 06:44] LABS: Albumin 2.1 g/dL (3.4-5.0); Bilirubin Total 1.2 mg/dL (0.2-1.0); Magnesium 1.8 mg/dL (1.6-2.4); Potassium 3.4 mEq/L (3.5-5.1); Protein, Total 6.4 g/dL (6.4-8.2)
[2023-09-11] MEDS ORDERED: NICOTINE 21 MG/PAT TD ONE (08:25)
[2023-09-11] MEDS ORDERED: THIAMINE 200 MG/2 ML INJ ONE (08:25)
[2023-09-11] MEDS: POTASSIUM CL SA 10 MEQ TAB PO ONE (08:32)
[2023-09-11] MEDS: MAGNESIUM SULFATE 1 gm IVPB 1 GM/100 ML BAG IV ONE (08:32)
[2023-09-11] MEDS: AMLODIPINE 5 MG TAB PO SCH (08:33)
[2023-09-11] MEDS: QUETIAPINE 25 MG TAB PO SCH (08:33)
--- NOTE | 2023-09-11 09:50 | P.PN ---
Subjective Date of Service: 09/11/23 Chief Complaint: pneumonia Subjective: Improving Doing much better A&O x3 eating an drinking agitated on Predex Review of Systems Unremarkable Physical Examination - Vital Signs Temperature: 97.5 F Blood Pressure: 131/100 Pulse: 66 Respirations: 17 Pulse Ox (%): 100 - Physical Exam General: Alert, Oriented x3 Respiratory: Clear to auscultation bilaterally Cardiovascular: No edema, Regular rate/rhythm, Normal S1 S2 - Studies Medications List Reviewed: Yes Assessment And Plan - Current Problems (Diagnosis) (1) Pneumonia Current Visit: Yes Status: Acute Plan: Doing much better eating and drinking. kelb pneumonia. change ot Po levaquin/ WBC normal. Tx to floor Discharge planning/ Labs reviewed Qualifiers: Pneumonia type: due to unspecified organism Laterality: left
--- NOTE | 2023-09-11 15:30 | PN ---
Date of Progress Note: 09/11/2023 Subjective: The patient was admitted for shock and respiratory failure. Required intubation and pre ssor support. Had Nephrology consulted for ADOWA. Creatinine is improving. Blood pressure was fluctu ating. Right now, he is on amlodipine 5 mg. Objective: Vital Signs: Temperature , respiratory rate 23, blood pressure 118/89. General: Awake and alert. Not in distress. Neck: Supple. No elevated JVD. Heart: Regular rate and rhythm. Normal S1 and S2. Chest: Clear to auscultation bilaterally. No rales or wheezes. Abdomen: Soft and nontender. Extremities: No edema. Laboratory Data: White count 10.9, hemoglobin 13.5, platelets 211. Sodium 141, potassium 3.4, BUN 1 4, creatinine was 0.8, calcium 8.5. Phosphorus 2.7, magnesium 1.8. Assessment And Plan: 1.Acute kidney injury due to hypotension and ischemic acute tubular necrosis. Creatinine down to 0. 9. Renally dose medication. 2.Hypokalemia. Replace as needed. replace magnesium as needed. 3.Hypertension. Currently, blood pressure is controlled. Patient has been on amlodipine and metopr olol. Patient was hypotensive upon admission. 4.Hypophosphatemia. Monitor and replace as needed. 5.Bipolar disorder. Continue current medication. Thank you for allowing me to participate in the patient's care. Total time I spent 55 minutes including documentation, reviewing labs, and discussing with patient's family and the nursing staff. ADRIANNA Voice ID: [id number] Report ID: [id number]
[2023-09-11] MEDS: LORazepam 2 MG/ML VIAL IV ONE (22:27)
[2023-09-12] MEDS: levoFLOXacin 750 MG TAB PO SCH (09:14)
--- NOTE | 2023-09-12 09:52 | P.PN ---
Subjective Date of Service: 09/12/23 Chief Complaint: pneumonia Pt is resting comfortably in bed. He denies any chest pain, SOB, nausea, vomiting or fever. No other complaints. Review of Systems Unremarkable General: Unremarkable Eyes: Unremarkable ENT: Unremarkable Respiratory: Unremarkable Cardiovascular: Unremarkable Gastrointestinal: Unremarkable Genitourinary: Unremarkable Musculoskeletal: Unremarkable Integumentary: Unremarkable Neurological: Unremarkable Lymphatics: Unremarkable Physical Examination - Vital Signs Temperature: 97.8 F Blood Pressure: 142/96 Pulse: 89 Respirations: 19 Pulse Ox (%): 96 - Physical Exam General: Alert, In no apparent distress, Oriented x3 HEENT: Atraumatic, Normocephalic Neck: Supple, 2+ carotid pulse no bruit Respiratory: Clear to auscultation bilaterally, Normal air movement Cardiovascular: No edema, Normal pulses, Regular rate/rhythm, Normal S1 S2 Capillary refill: <2 Seconds Gastrointestinal: Normal bowel sounds, Soft and benign, Non-distended Musculoskeletal: No clubbing, No swelling Integumentary: No rashes, No breakdown Neurological: Normal gait, Normal speech, Normal strength at 5/5 x4 extr Lymphatics: No axilla or inguinal lymphadenopathy - Studies Microbiology Data (last 24 hrs): 09/07/23 01:46 Blood - Blood Aerobic Blood Culture - Final No growth in 5 days. 09/07/23 01:46 Blood - Blood Anaerobic Blood Culture - Final No growth in 5 days. 09/07/23 00:02 Blood - Blood Aerobic Blood Culture - Final No growth in 5 days. 09/07/23 00:02 Blood - Blood Anaerobic Blood Culture - Final No growth in 5 days. Medications List Reviewed: Yes Assessment And Plan - Plan AMS: Improving. Pt has recent evacuation of intracranial hematoma. CT heash shows No evidence of an acute intracranial process. Stable areas of encephalomalacia in the right lateral temporal and parietal regions, suggestive of sequelae of remote MCA territory ischemia. Ammonia is 25. Aspiration pneumonia: S/p shock. Off pressors. Will continue po levaquin. Sputum cx is growing Klebsiella pneumoniae and Enterobacter cloacea. Hx of CAD; Will continue home meds Hx of intracranial injury. : noted. ADWOA: Cr is 0.87. Will avoid nephrotoxins and monitor renal function. Acute resp failure: resolved. off vent. Bradycardia: HR has resolved. HR is 96. Likely due to sedation. DVT ppx: SCD Dispo: Pending hospital course.
[2023-09-12 10:09] LABS: Magnesium 1.9 mg/dL (1.6-2.4); Phosphorus 2.7 mg/dL (2.5-4.9); Potassium 3.6 mEq/L (3.5-5.1)
--- NOTE | 2023-09-12 13:35 | P.PN ---
Date of Service: 09/09/23 Subjective Patient continues to improve. Pt still gets agitated at times. plan to extubate Physical Examination - Vital Signs reviewed - Physical Exam General: Other (Intubated and sedated) HEENT: Atraumatic, PERRLA, Other (ET tube in place), EOMI Neck: Supple, JVD not distended Respiratory: Diminished Cardiovascular: Regular rate/rhythm, Normal S1 S2, Systolic murmur Gastrointestinal: Normal bowel sounds, Soft and benign, Non-distended, No tenderness Musculoskeletal: No clubbing, No swelling, No tenderness Neurological: no focal deficits Assessment & Plan - Problems (Diagnosis) (1) Altered mental status Current Visit: Yes Status: Acute (2) Aspiration pneumonia Current Visit: Yes Status: Acute (3) History of coronary artery disease Current Visit: Yes Status: Acute (4) History of intracranial injury Current Visit: Yes Status: Acute (5) ADWOA (acute kidney injury) Current Visit: Yes Status: Acute - Plan Plan: 1. Neurologic: Patient mentation is improved; plan to extubate. Repeat imaging 2. Cardiovascular: Weaned off vasopressor support; 3. Pulmonary: respiratory status is stable; 4. GI: Continue with tube feeds in the morning. Continue with PPI 5. Nephrology: Monitor UOP 6. Infectious: Concern for aspiration pneumonia. 7. Endocrine: Thyroid studies stable Discharge Plan: Home w/ HH vs SNF Plan to discharge in: Greater than 2 days - Advance Directives Does patient have a Living Will: No Does patient have a Durable POA for Healthcare: No Critical Care: Yes Time Spent Managing PTS Care (In Minutes): 45
--- NOTE | 2023-09-12 13:41 | P.PN ---
Date of Service: 09/10/23 Subjective Patient was extubated yesterday; no new complaints; pt still with confusion. Physical Examination - Vital Signs reviewed - Physical Exam General: Awake but confused HEENT: WNL Respiratory: Diminished Cardiovascular: Regular rate/rhythm, Normal S1 S2, Systolic murmur Gastrointestinal: Normal bowel sounds, Soft and benign, Non-distended, No tenderness Musculoskeletal: No clubbing, No swelling, No tenderness Neurological: no focal deficits Assessment & Plan - Problems (Diagnosis) (1) Altered mental status Current Visit: Yes Status: Acute (2) Aspiration pneumonia Current Visit: Yes Status: Acute (3) History of coronary artery disease Current Visit: Yes Status: Acute (4) History of intracranial injury Current Visit: Yes Status: Acute (5) ADWOA (acute kidney injury) Current Visit: Yes Status: Acute (6) H/o of alcohol abuse Current Visit: Yes Status: Acute - Plan Continue with POC as mentioned below: 1. Neurologic: Patient mentation is improved; 2. Cardiovascular: Weaned off vasopressor support; 3. Pulmonary: respiratory status is stable; s/p extubation 4. GI: Diet as tolerated. Continue with PPI 5. Nephrology: Monitor UOP; renal function stable 6. Infectious: Continue with antibiotics 7. Endocrine: Thyroid studies stable Discharge Plan: Home w/ HH vs SNF Plan to discharge in: Greater than 2 days - Advance Directives Does patient have a Living Will: No Does patient have a Durable POA for Healthcare: No Critical Care: Yes Time Spent Managing PTS Care (In Minutes): 45
--- NOTE | 2023-09-12 13:44 | P.PN ---
Date of Service: 09/11/23 Subjective Patient's mentation has improved. Patient more awake and alert and following commands. Patient ambulating without difficulty. Physical Examination - Vital Signs reviewed - Physical Exam General: Awake but confused HEENT: WNL Respiratory: Diminished but overall clear Cardiovascular: Regular rate/rhythm, Normal S1 S2, Systolic murmur Gastrointestinal: Normal bowel sounds, Soft and benign, Non-distended, No tenderness Musculoskeletal: No clubbing, No swelling, No tenderness Neurological: no focal deficits Assessment & Plan - Problems (Diagnosis) (1) Altered mental status Current Visit: Yes Status: Acute (2) Aspiration pneumonia Current Visit: Yes Status: Acute (3) History of coronary artery disease Current Visit: Yes Status: Acute (4) History of intracranial injury Current Visit: Yes Status: Acute (5) ADWOA (acute kidney injury) Current Visit: Yes Status: Acute (6) H/o of alcohol abuse Current Visit: Yes Status: Acute - Plan Continue with POC as mentioned below: 1. Neurologic: Patient mentation is improved; neurologic condition has improved. 2. Cardiovascular: Weaned off vasopressor support; Cardiac status is stable 3. Pulmonary: respiratory status is stable; s/p extubation 4. GI: Diet as tolerated. Continue with PPI 5. Nephrology: Monitor UOP; renal function stable 6. Infectious: Continue with antibiotics 7. Endocrine: Thyroid studies stable Discharge Plan: Home w/ HH vs SNF Plan to discharge in: Greater than 2 days - Advance Directives Does patient have a Living Will: No Does patient have a Durable POA for Healthcare: No Critical Care: Yes Time Spent Managing PTS Care (In Minutes): 25
--- NOTE | 2023-09-12 13:49 | EKG ---
Test Date: 2023-09-08 Test Time: 15:17:47 Electric Vehicle Electrician: CMAP MEASUREMENT RESULTS: Intervals: Rate: 45 IA: 144 QRSD: 86 QT: 456 QTc: 394 Barling: P: 73 IA: 144 QRS: 60 T: 69 INTERPRETIVE STATEMENTS: Sinus bradycardia Otherwise normal ECG Compared to ECG 04/29/2023 22:23:20 Sinus rhythm no longer present Electronically Signed On 09-12-23 13:36:58 PERSONAL [employer]ES SALES EXECUTIVE by Edilson Gold
--- NOTE | 2023-09-12 16:23 | RAD REPORT ---
EXAM DESCRIPTION: [facility] Single View09/12/2023 4:16 pm CLINICAL HISTORY: Chest pain COMPARISON: September 10, 2023 FINDINGS: Mild improvement in the left upper lobe alveolar opacities Remainder of the lungs appear clear of acute infiltrate. Heart is normal size
--- NOTE | 2023-09-13 02:14 | PN ---
Date of Progress Note: 09/12/2023 Chief Complaint: Acute kidney injury. Subjective: The patient is admitted for shock and respiratory failure. He required intubation and p ressor for blood pressure support. Nephrology was consulted for acute kidney injury. Creatinine lev el is improving and urine output is stable. Blood pressure was fluctuating currently, although he is on amlodipine 5 mg daily. Blood pressure is controlled. Review of Systems: Denies chest pain or palpitation. Physical Examination: Lungs: Clear to auscultation bilaterally. Heart: S1, S2. Abdomen: Soft. Extremities: No edema. Impression And Plan: 1.Acute kidney injury due to hypotension causing ischemic acute tubular necrosis, prerenal azotemia. Serum creatinine level has improved to , which appears to be the patient's baseline. 2.Hypokalemia. Replace as needed. Monitor magnesium and replace magnesium as needed. 3.Hypertension. Currently, blood pressure is in good control. The patient was taking amlodipine an d metoprolol. Continue current treatment. 4.Hypophosphatemia. Monitor and replace as needed. 5.Bipolar disorder. Continue current medication. Follow up with psychiatrist. GIOVANNA/HALEY Voice ID: [id number] Report ID: [id number]
--- NOTE | 2023-09-13 10:17 | P.PN ---
Subjective Date of Service: 09/13/23 Chief Complaint: pneumonia Pt is resting comfortably in bed. He denies any chest pain, SOB, nausea, vomiting or fever. branch operations manager is looking into his placement option. His girlfrient reports that pt is not able to take care of himself and he lives with a disabled room mate. Pt will need SNF placement. No other complaints. Review of Systems Unremarkable General: Unremarkable Eyes: Unremarkable ENT: Unremarkable Respiratory: Unremarkable Cardiovascular: Unremarkable Gastrointestinal: Unremarkable Genitourinary: Unremarkable Musculoskeletal: Unremarkable Integumentary: Unremarkable Neurological: Unremarkable Lymphatics: Unremarkable Physical Examination - Vital Signs Temperature: 99.1 F Blood Pressure: 142/86 Pulse: 86 Respirations: 18 Pulse Ox (%): 96 - Studies Medications List Reviewed: Yes Assessment And Plan - Plan AMS: Improving. Pt has recent evacuation of intracranial hematoma. CT heash shows No evidence of an acute intracranial process. Stable areas of encephalomalacia in the right lateral temporal and parietal regions, suggestive of sequelae of remote MCA territory ischemia. Ammonia is 25. Aspiration pneumonia: S/p shock. Off pressors. Will continue po levaquin. Sputum cx is growing Klebsiella pneumoniae and Enterobacter cloacea. Hx of CAD; Will continue home meds Hx of intracranial injury : noted. ADWOA: Cr is 1.01 <- 0.87. Will avoid nephrotoxins and monitor renal function. Acute resp failure: resolved. off vent. Bradycardia: HR has resolved. HR is 96. Likely due to sedation. Deconditioning: Consulted PT. DVT ppx: SCD Dispo: branch operations manager is looking into possible SNF placement.
--- NOTE | 2023-09-13 12:26 | P.PN ---
Subjective Date of Service: 09/13/23 Chief Complaint: pneumonia Patient is doing well no new complaints no fever chills or chest pain Review of Systems Unremarkable Physical Examination - Vital Signs Temperature: 98.8 F Blood Pressure: 125/79 Pulse: 94 Respirations: 18 Pulse Ox (%): 94 - Physical Exam General: Alert Neck: Supple Cardiovascular: No edema, Regular rate/rhythm - Studies Medications List Reviewed: Yes Assessment And Plan - Current Problems (Diagnosis) (1) Pneumonia Current Visit: Yes Status: Acute Plan: Patient is 58 years of age admitted with left lower lobe pneumonia Klebsiella isolated doing much better continue with levofloxacin Jennifer's labs reviewed normal white count now plan for discharge patient has a total 6 days of antibiotic no apparent consolidation on the chest x-ray Qualifiers: Pneumonia type: due to unspecified organism Laterality: left
[2023-09-13] MEDS: POTASS/SODIUM PHOSPHATE 1 PKT POWD.PACK PO ONE (14:17)
[2023-09-13] MEDS: MAGNESIUM SULFATE 1 gm IVPB 1 GM/100 ML BAG IV ONE (14:17)
--- NOTE | 2023-09-13 14:32 | PN ---
Date of Progress Note: 09/13/2023 Subjective: The patient was admitted to the hospital with acute kidney injury secondary to prerenal. The patient's kidney function after hydration has been improved. The patient completely asymptomatic. Physical Examination: Vital Signs: Blood pressure 125/79, pulse of 94, afebrile. Chest: Clear to auscultation. Heart: S1, S2, regular. Abdomen: Soft, nontender. Extremities: No edema. Neurologic: Alert. No focality. Lab: Sodium 131, potassium 3.6, bicarb 26, BUN 17, creatinine 1, GFR of 86. Calcium 9, phosphorus 2.7, magnesium 1.9. Hemoglobin 13.5. Current Medications: Include: 1. Levaquin. 2. Nicotine patch. 3. Amlodipine 10 mg. 4. Losartan 50 b.i.d. 5. Metoprolol 25 b.i.d. 6. Seroquel. Assessment And Plan: 1. Acute kidney injury secondary to prerenal, recovered, resolved, off IV fluid. We will continue to monitor. 2. Hypertension, controlled, optimal. Agree with [facility]B. 3. Hypokalemia, hypomagnesemia. Continue supplements. 4. Bipolar. As by primary. 5. Hypophosphatemia. We will supplement. Time spent examining the patient [id number] reviewing that the lab and the radiology placing orders or discussing the case with the patient discussing the case with the steam engineer including hospitalist and nursing ICU staff more than 35-minute ALIDA Voice ID: [id number] Report ID: [id number] MORA
[2023-09-14 03:25] LABS: Lymphocytes % 14.1 % (15.3-44.8); MCV 97.2 fL (80-100); MPV 7.8 fL (7.6-11.3); Platelets 213 thou/uL (152-406); RBC Red Blood Cell Count 3.91 M/uL (4.33-5.43)
[2023-09-14 03:39] LABS: Potassium 3.3 mEq/L (3.5-5.1)
[2023-09-14] MEDS: POTASSIUM CL SA 10 MEQ TAB PO ONE ×2 (06:16→08:22)
--- NOTE | 2023-09-14 10:14 | P.PN ---
Subjective Date of Service: 09/14/23 Chief Complaint: pneumonia Pt is resting comfortably in bed. He denies any chest pain, SOB, nausea, vomiting or fever. resident services manager is looking into his placement option. His girlfriend reports that pt is not able to take care of himself and he lives with a disabled room mate. Pt will need SNF placement. No other complaints. Review of Systems Unremarkable General: Unremarkable Eyes: Unremarkable ENT: Unremarkable Respiratory: Unremarkable Cardiovascular: Unremarkable Gastrointestinal: Unremarkable Genitourinary: Unremarkable Musculoskeletal: Unremarkable Integumentary: Unremarkable Neurological: Unremarkable Lymphatics: Unremarkable Physical Examination - Vital Signs Temperature: 98.3 F Blood Pressure: 100/68 Pulse: 84 Respirations: 18 Pulse Ox (%): 97 - Physical Exam General: Alert, In no apparent distress, Oriented x3 HEENT: Atraumatic, Normocephalic, PERRLA Neck: Supple, 2+ carotid pulse no bruit Respiratory: Clear to auscultation bilaterally, Normal air movement Cardiovascular: No edema, Normal pulses, Regular rate/rhythm, Normal S1 S2 Capillary refill: <2 Seconds Gastrointestinal: Normal bowel sounds, Soft and benign, Non-distended Musculoskeletal: No clubbing, No swelling Integumentary: No rashes, No breakdown Neurological: Normal speech, Normal strength at 5/5 x4 extr, Normal tone, Sensation intact, Cranial nerves 3-12 intact Lymphatics: No axilla or inguinal lymphadenopathy - Studies Medications List Reviewed: Yes Assessment And Plan - Plan AMS: Improving. Pt has recent evacuation of intracranial hematoma. CT heash shows No evidence of an acute intracranial process. Stable areas of encephalomalacia in the right lateral temporal and parietal regions, suggestive of sequelae of remote MCA territory ischemia. Ammonia is 25. Aspiration pneumonia: S/p shock. Off pressors. Will continue po levaquin. Sputum cx is growing Klebsiella pneumoniae and Enterobacter cloacea. Hx of CAD; Will continue home meds Hx of intracranial injury : noted. ADWOA: Cr is 1.01 <- 0.87. Will avoid nephrotoxins and monitor renal function. Acute resp failure: resolved. off vent. Bradycardia: HR has resolved. HR is 96. Likely due to sedation. Deconditioning: Consulted PT. DVT ppx: SCD Dispo: resident services manager is looking into possible SNF placement.
--- NOTE | 2023-09-14 12:28 | PN ---
Date of Progress Note: 09/14/2023 Subjective: The patient was admitted to the hospital with acute kidney injury secondary to prerenal, dehydration. The patient was started on IV hydration. The patient feeling better. The patient has hypokalemia, hypomagnesemia, being supplemented. Physical Examination: Vital Signs: When I saw the patient, blood pressure 100/68, pulse of 84, afebrile. Chest: Clear to auscultation. Heart: S1, S2, regular. Abdomen: Soft, nontender. Extremities: No edema. Neuro: Alert, no focality. Lab: Hemoglobin 12.9. Sodium 138, potassium 3.3, bicarb 26, BUN 11, creatinine 0.7, GFR 103, calciu m 8.3. Assessment And Plan: 1.Acute kidney injury secondary to prerenal, recovered, resolved, off IV fluid for the last 24 hours . We will continue holding IV fluid. 2.Hypertension, controlled, optimal, currently on the lower side. I am going to go ahead and discon tinue amlodipine. Continue losartan and metoprolol. 3.Bipolar. As by primary. 4.Hypokalemia, hypophosphatemia. We will supplement. HANG/HALEY Voice ID: [id number] Report ID: [id number]
[2023-09-15] MEDS: FAMOTIDINE 20 MG/2 ML VIAL IV SCH (01:19)
[2023-09-15] MEDS: LORazepam 2 MG/ML VIAL IV ONE (03:10)
[2023-09-15 03:43] LABS: Absolute Lymphocytes (CBC) 1.3 K/uL (0.7-4.9); Hematocrit 36.7 % (39.6-49.0); Lymphocytes % 18.9 % (15.3-44.8); MCV 96.9 fL (80-100); Platelets 221 thou/uL (152-406); RBC Red Blood Cell Count 3.79 M/uL (4.33-5.43)
[2023-09-15 03:54] LABS: Potassium 3.4 mEq/L (3.5-5.1)
[2023-09-15 05:22] LABS: Blood Morphology Comment NOT SEEN (NOT SEEN); Platelet Estimate ADEQ
[2023-09-15] MEDS: POTASSIUM CL SA 10 MEQ TAB PO ONE ×2 (05:55→17:06)
[2023-09-15] MEDS: chlordiazePOXIDE HCl 25 MG CAP PO PRN (08:21)
[2023-09-15 09:32] VITALS: O2SAT 95
--- NOTE | 2023-09-15 11:19 | P.PN ---
Subjective Date of Service: 09/15/23 Chief Complaint: pneumonia Pt was sleeping when I saw him. He was arousable. He denies any chest pain, SOB, nausea, vomiting or fever. channel marketing manager is looking into his placement option. His girlfriend reports that pt is not able to take care of himself and he lives with a disabled room mate. Pt will need SNF placement. No other complaints. Review of Systems Unremarkable General: Unremarkable Eyes: Unremarkable ENT: Unremarkable Respiratory: Unremarkable Cardiovascular: Unremarkable Gastrointestinal: Unremarkable Genitourinary: Unremarkable Musculoskeletal: Unremarkable Integumentary: Unremarkable Neurological: Unremarkable Lymphatics: Unremarkable Physical Examination - Vital Signs Temperature: 98.1 F Blood Pressure: 110/75 Pulse: 96 Respirations: 18 Pulse Ox (%): 95 - Physical Exam General: Alert, In no apparent distress, Oriented x3 HEENT: Atraumatic, Normocephalic, PERRLA Neck: Supple, 2+ carotid pulse no bruit Respiratory: Clear to auscultation bilaterally, Normal air movement Cardiovascular: No edema, Normal pulses, Regular rate/rhythm, Normal S1 S2 Capillary refill: <2 Seconds Gastrointestinal: Normal bowel sounds, Soft and benign, Non-distended Musculoskeletal: No clubbing, No swelling Integumentary: No rashes, No breakdown Neurological: Normal speech, Normal strength at 5/5 x4 extr, Normal tone, Sensation intact, Cranial nerves 3-12 intact Lymphatics: No axilla or inguinal lymphadenopathy - Studies Medications List Reviewed: Yes Assessment And Plan - Plan AMS: Improving. Pt has recent evacuation of intracranial hematoma. CT head shows No evidence of an acute intracranial process. Stable areas of encephalomalacia in the right lateral temporal and parietal regions, suggestive of sequelae of remote MCA territory ischemia. Ammonia is 25. Aspiration pneumonia: S/p shock. Off pressors. Completed levaquin on 09/14/23. Sputum cx is growing Klebsiella pneumoniae and Enterobacter cloacea. Hx of CAD; Will continue home meds Hx of intracranial injury : noted. ADWOA: Cr is 0.87<- 1.01 <- 0.87. Will avoid nephrotoxins and monitor renal function. Acute resp failure: resolved. off vent. Bradycardia: HR has resolved. HR is 96. Likely due to sedation. Deconditioning: Consulted PT. DVT ppx: SCD Dispo: channel marketing manager is looking into possible SNF placement.
[2023-09-15] MEDS: DIAZEPAM 5 MG TABLET PO SCH (11:37)
[2023-09-15 12:56] VITALS: TEMP 98.7
[2023-09-15 17:35] VITALS: BP 96/65
--- NOTE | 2023-09-15 18:37 | PN ---
Date of Progress Note: 09/15/2023 Subjective: The patient was admitted to the hospital with acute kidney injury secondary to prerenal patient. After hydration, kidney function completely normalized. Physical Examination: General: When I saw the patient, the patient is lying in bed, comfortable, not in any distress. Vital Signs: Blood pressure 110/74, pulse of 93, afebrile. Chest: Clear to auscultation. Heart: S1, S2 regular. Abdomen: Soft, nontender. Extremities: No edema. Neurologic: Alert. No focality. Laboratory Data: Hemoglobin 12.6. Sodium 139, potassium 3.4, bicarb 24, BUN 9, creatinine 0.8, calc ium 8.4. Current Medications: The patient is on include: 1.Tylenol. 2.Diazepam. 3.Lorazepam. 4.Seroquel. Assessment And Plan: 1.Acute kidney injury secondary to prerenal, recovered, resolved. 2.Hypertension, controlled optimal. Yesterday we discontinued amlodipine. Blood pressure continue to be stable. 3.Bipolar as by primary. 4.Hypokalemia, we will supplement. HANG/HALEY Voice ID: [id number] Report ID: [id number]
--- NOTE | 2023-09-15 20:37 | P.DS ---
Admission Date: 09/07/23 Discharge Date: 09/15/23 Disposition: AMA-LEFT AGAINST MEDICAL ADVIC Reason for Admission: pneumonia Brief History of Present Illness: Patient is 58 yo male with past medical history of CVA and drug abuse who was found unresponsive and intubated by EMS. On admission, pt had [place]on Coma Scale of 3. Patient was given left tibial intraosseous IV and was then intubated. Pt was admitted in the ICU for vent management. We suspected pt abused drug, His ex- and son reported that pt had a heart attack and an intracranial hematoma that had to be evacuated a month or 2 ago. He was discharged home, but pt was slow to regain his normal day-to-day living. She states he really cares about his presentation. He grooms himself and he gets around pretty well day-to-day. He is fully functioning and does not really have any confusion or altered mentation. Patient has been very agitated while in bed. Nurses have apparently tried to use sedation and he has had bradyarrhythmias. Patient is in restraints and has been on assist control while on the mechanical ventilator. We were able to place him on spontaneous ventilation and we kept him on a pressure support of 8 and a PEEP of 5. He maintained his oxygen saturations at 100%. I anticipate that we should be able to wean him off the ventilator as long as his mentation is appropriate. He is no longer on vasopressor and his cardiac status is fairly stable. He does have a diminished urine output at this time. Will continue monitoring renal function closely. Hospital Course: Patient is 58 yo male with past medical history of CVA and drug abuse who was found unresponsive and intubated by EMS. On admission, pt had Eldon Coma Scale of 3. Patient was given left tibial intraosseous IV and was then intubated. Pt was admitted in the ICU for vent management. We suspected pt abused drug, His ex- and son reported that pt had a heart attack and an intracranial hematoma that had to be evacuated a month or 2 ago. He was discharged home, but pt was slow to regain his normal day-to-day living. Pt was agitated and we gave precedex. Pt also received vasopressor for a brief period before pt was extubated. UDS was positive for UDS and Benzo. We treated aspiration pneumonia with flagyl and rocephin. Pt was advised to quit using drugs. We repleted electrolytes. ADWOA resolved with IVF. His discharge was delayed due to placement issues. His ex- did not want him to come back to her house. Pt left AMA on 09/15/23. Vital Signs/Physical Exam: Temp Pulse Resp BP Pulse Ox 98.7 F 96 H 14 96/65 98 09/15/23 12:00 09/15/23 17:23 09/15/23 12:00 09/15/23 17:23 09/15/23 12:00 Laboratory Data at Discharge: WBC 6.70 thou/uL (4.3-10.9) 09/15/23 02:15 Hgb 12.6 g/dL (13.6-17.9) L 09/15/23 02:15 Hct 36.7 % (39.6-49.0) L 09/15/23 02:15 Plt Count 221 thou/uL (152-406) 09/15/23 02:15 PT 12.6 SECONDS (9.5-12.5) H 09/07/23 00:05 INR 1.15 09/07/23 00:05 APTT 27.7 SECONDS (24.3-36.9) 09/07/23 00:05 Sodium 139 mEq/L (136-145) 09/15/23 02:15 Potassium 3.8 mEq/L (3.5-5.1) 09/15/23 12:56 BUN 9 mg/dL (7-18) 09/15/23 02:15 Creatinine 0.87 mg/dL (0.70-1.30) 09/15/23 02:15 Glucose 96 mg/dL (74-106) 09/15/23 02:15 Uric Acid 4.1 mg/dL (3.5-7.2) 09/09/23 12:37 Phosphorus 2.7 mg/dL (2.5-4.9) 09/12/23 09:34 Magnesium 1.9 mg/dL (1.6-2.4) 09/12/23 09:34 Total Bilirubin 1.2 mg/dL (0.2-1.0) H 09/11/23 06:13 AST 11 U/L (15-37) L 09/11/23 06:13 ALT 20 U/L (16-61) 09/11/23 06:13 Alkaline Phosphatase 69 U/L (45-117) 09/11/23 06:13 Triglycerides 120 mg/dL (<150) 09/09/23 12:37 Cholesterol 136 mg/dL (<200) 09/09/23 12:37 HDL Cholesterol 46 mg/dL (40-60) 09/09/23 12:37 Cholesterol/HDL Ratio 2.96 09/09/23 12:37 Home Medications: Aripiprazole [Abilify] 5 mg PO DAILY 09/09/23 Baclofen 10 mg PO TID PRN 09/09/23 Carvedilol [Coreg] 12.5 mg PO BID 09/09/23 Diazepam [Valium] 5 mg PO BID 09/09/23 Famotidine 20 mg PO BEDTIME 09/09/23 Losartan Potassium 100 mg PO DAILY 09/09/23 NIFEdipine [Nifedipine ER] 30 mg PO DAILY 09/09/23 Pantoprazole [Protonix Tab*] 40 mg PO DAILY 09/09/23 Quetiapine Fumarate [Seroquel] 100 mg PO BEDTIME PRN 09/09/23 Followup: NONE,NONE [Primary Care Provider] -
== END 2023-09-15 18:38 | disposition left against medical advice (07) | DRG 871 ==
LOC: ER 23:55 → 3RD-ICU 09-07 03:29 → 2ND 09-11 16:00
PROVIDERS: ADMIT Internal Medicine Nephrology; ATTEND Hospitalist
PROC: 5A1945Z Respiratory Ventilation, 24-96 Consecutive Hours (ICD-10-PCS; principal; 2023-09-07)
PROC: 0BH17EZ Insertion of Endotracheal Airway into Trachea, Via Natural or Artificial Opening (ICD-10-PCS; 2023-09-07)
PROC: 0T9B70Z Drainage of Bladder with Drainage Device, Via Natural or Artificial Opening (ICD-10-PCS; 2023-09-07)
PROC: 02HV33Z Insertion of Infusion Device into Superior Vena Cava, Percutaneous Approach (ICD-10-PCS; 2023-09-07)
PROC: 3E043XZ Introduction of Vasopressor into Central Vein, Percutaneous Approach (ICD-10-PCS; 2023-09-07)
DX: A41.9 Sepsis, unspecified organism (principal); G92.8 Other toxic encephalopathy; J69.0 Pneumonitis due to inhalation of food and vomit; J96.00 Acute respiratory failure, unspecified whether with hypoxia or hypercapnia; R65.21 Severe sepsis with septic shock; N17.0 Acute kidney failure with tubular necrosis; I69.351 Hemiplegia and hemiparesis following cerebral infarction affecting right dominant side; L89.321 Pressure ulcer of left buttock, stage 1; L89.311 Pressure ulcer of right buttock, stage 1; E87.6 Hypokalemia; E78.5 Hyperlipidemia, unspecified; I10 Essential (primary) hypertension; D35.00 Benign neoplasm of unspecified adrenal gland; F31.9 Bipolar disorder, unspecified; E83.39 Other disorders of phosphorus metabolism; E83.42 Hypomagnesemia; G93.89 Other specified disorders of brain; F13.10 Sedative, hypnotic or anxiolytic abuse, uncomplicated; F10.20 Alcohol dependence, uncomplicated; F12.10 Cannabis abuse, uncomplicated; F17.200 Nicotine dependence, unspecified, uncomplicated; B95.2 Enterococcus as the cause of diseases classified elsewhere; B96.1 Klebsiella pneumoniae [K. pneumoniae] as the cause of diseases classified elsewhere; R00.1 Bradycardia, unspecified; R91.8 Other nonspecific abnormal finding of lung field; Z78.1 Physical restraint status; Z53.29 Procedure and treatment not carried out because of patient's decision for other reasons; Z79.02 Long term (current) use of antithrombotics/antiplatelets; Z79.899 Other long term (current) drug therapy
CPT/HCPCS: 31500; 36415; 36600; 51702; 70450; 71045; 71260; 72125; 74177; 76770; 80048; 80053; 80061; 80307; 81001; 82077; 82140; 82533; 82550; 82570; 82607; 82805; 82947; 83605; 83735; 83880; 83930; 83935; 84100; 84132; 84145; 84156; 84300; 84439; 84443; 84484; 84550; 85025; 85610; 85730; 86335; 87040; 87070; 87077; 87186; 87205; 92526; 92610; 93005; 93306; 94002; 94003; 97110; 97116; 97161; 97530; 99291; 99292; J0360; J0696; J1170; J1630; J1650; J1720; J2250; J2405; J2543; J2704; J2920; J3010; J3411; J3475; J3480; J7030; J7040; J7050; P9047; Q9967